=== PATIENT | male | born 1985 | race Caucasian/White ===

== ENCOUNTER 2020-11-10 15:29 | Emergency (ER) | payer MEDICAID, SELFPAY ==
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
[2020-11-10 16:08] VITALS: BP 152/87; PULSE 95; RESP 18; TEMP 37.2; O2SAT 98; BMI 21.4
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
[2020-11-10 18:10] VITALS: BP 134/93; PULSE 105; RESP 17
--- NOTE | 2020-11-10 18:31 | PC.NURSE ---
WAITING FOR PATTERN MAKER PROGRAMER.
== END 2020-11-10 18:48 | disposition home or self-care (01) ==
PROVIDERS: Emergency Provider Emergency Medicine Emergency Medical Services
DX: S49.92XA Unspecified injury of left shoulder and upper arm, initial encounter (principal); M25.512 Pain in left shoulder; R07.81 Pleurodynia; M25.532 Pain in left wrist; M54.2 Cervicalgia; M25.552 Pain in left hip; X58.XXXA Exposure to other specified factors, initial encounter; Y93.9 Activity, unspecified; Y92.9 Unspecified place or not applicable; Y99.9 Unspecified external cause status
CPT/HCPCS: 71101; 72040; 73030; 73110; 73502; 99284

== ENCOUNTER 2021-06-03 00:40 | Emergency (ER) | payer MEDICAID, SELFPAY ==
[2021-06-03 00:51] VITALS: BP 118/99; PULSE 82; RESP 16; TEMP 36.5; O2SAT 100; BMI 20.9
[2021-06-03 01:42] LABS: Ethanol < 10 mg/dL
[2021-06-03 01:48] LABS: COVID-19 Test Negative (Negative); IDNOW Serial# 9DD0AD1C
[2021-06-03 02:08] LABS: Amphetamine Screen Urine POSITIVE (Not Detect); Barbiturates, Urine Not Detected (Not Detect); Benzodiazepines Screen Urine Not Detected (Not Detect); Cannabinoid Screen Urine POSITIVE (Not Detect); Cocaine Screen Urine POSITIVE (Not Detect); Fentanyl, urine POSITIVE (Not Detect); Opiate Screen Urine POSITIVE (Not Detect); Phencyclidine Screen Urine Not Detected (Not Detect)
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
--- NOTE | 2021-06-03 03:56 | PC.NURSE ---
On provider's request care team checked in with patient briefly and recommended to reassess in the morning by care team when patient is less under influence. Patient notified of the plan but seems not happy with the plan and stated he will daxa the hospital for keeping him against his wish. No distress reported at this time, will continue to monitor.
[2021-06-03 06:12] VITALS: BP 122/70; PULSE 78; RESP 16; TEMP 36.6; O2SAT 94
--- NOTE | 2021-06-03 06:21 | PC.NURSE ---
Patient has been sleeping since 344, no distress observed/reported, patient will be reassessed in the morning by care team, patient is not a crises patient, will continue to monitor.
--- NOTE | 2021-06-03 06:48 | ED.GENADULT ---
HPI - General Adult General Chief complaint: Psychiatric Symptoms Stated complaint: crisis drug use Time Seen by Provider: 06/03/21 00:42 Source: patient Mode of arrival: EMS History of Present Illness HPI narrative: 35-year-old male who is brought in by EMS after family called the police department alleging that the patient had made homicidall statements towards them as well as suicidal statements. The please department Section the patient, and as per EMS patient has been calm and quiet. Patient denies SI/HI/AVH and endorses that he has taken multiple substances. Related Data Allergies Allergy/AdvReac Type Severity Reaction Status Date / Time No Known Allergies Allergy Verified 11/10/20 16:08 [No Known Allergies*] Review of Systems Review of Systems: Pertinent positives and negatives as stated in HPI 10 point review of systems is otherwise negative. PMFSH Past Medical History Source: nursing notes reviewed Social History Social History Advance Directives: No Advance Directives Information Provided: Yes Physical Exam Vital Signs: Vital Signs: Last Vital Signs Temp 97.9 F 06/03/21 06:12 Pulse 78 06/03/21 06:12 Resp 16 06/03/21 06:12 BP 122/70 06/03/21 06:12 Pulse Ox 94 06/03/21 06:12 Body Mass Index 20.9 VITAL SIGNS: Reviewed. GENERAL: Well developed, well nourished, in no acute distress. HEAD: Normocephalic/atraumatic EYES: PERRLA, EOMI LUNGS: Normal breath sounds. SpO2<94> CARDIOVASCULAR: Regular rate and rhythm without noted murmurs ABDOMEN: Soft, non-tender, non-distended with bowel sounds. NEUROLOGIC: Alert and oriented x 4. PSYCH: Normal affect Course Course Course Narrative: 35-year-old male with history and clinical presentation consistent with polysubstance abuse and doubt intent on suicidal or homicidal statements as it appears to be situational. VELASQUEZ is significant for polysubstance presents and on initial screening by the care team they recommend re-evaluation in the morning. Patient is otherwise noted to be calm and compliant and understands that he will be re-evaluated. Medical Decision Making Lab Data Labs: Lab Results 06/03/21 06/03/21 06/03/21 Range/Units 01:10 01:10 01:10 Urine Opiates Screen POSITIVE H (Not Detect) Urine Fentanyl Screen POSITIVE H (Not Detect) Ur Barbiturates Screen Not Detected (Not Detect) Ur Phencyclidine Scrn Not Detected (Not Detect) Ur Amphetamines Screen POSITIVE H (Not Detect) U Benzodiazepines Scrn Not Detected (Not Detect) Urine Cocaine Screen POSITIVE H (Not Detect) U Marijuana (THC) Screen POSITIVE H (Not Detect) Ethyl Alcohol < 10 mg/dL COVID-19 ([facility]) Negative (Negative) COVID-19 Clin Com See Note Discharge Plan Discharge Clinical Impression: Polysubstance abuse Patient Disposition: Home, Self-Care Instructions: Polysubstance Abuse (ED) Additional Instructions: Return to the ER for acute worsening of symptoms. Referrals: Physician,Unknown [Primary Care Provider] - 2 days
--- NOTE | 2021-06-03 07:22 | PC.NURSE ---
PT SLEEPING. AWAITING RE-EVAL FROM CARE TEAM PRIOR TO DISCH
--- NOTE | 2021-06-03 09:07 | PC.NURSE ---
CARE TEAM IN SPEAKING WITH PT
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
--- NOTE | 2021-06-03 10:57 | PC.NURSE ---
CARE TEAM SPOKE WITH MOTHER. MOTHER AT COURT HOUSE NOW TRYING TO GET A SECTION 35
--- NOTE | 2021-06-03 13:40 | PC.NURSE ---
PT OUT TO NURSE'S STATION. DEMANDING TO LEAVE. CARE TEAM AWARE. STATES HE HAS TO GO TO WORK.
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
--- NOTE | 2021-06-03 14:14 | MHC.CARE ---
Call to [employer], they want to fruit picker patient on the warrant for court before 2:30, will come here to get him soon. Updated RN, PA and security about?plan.
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
== END 2021-06-03 15:19 | disposition home or self-care (01) ==
PROVIDERS: Emergency Provider Student in an Organized Health Care Education/Training Program
DX: F19.10 Other psychoactive substance abuse, uncomplicated (principal); Z20.822 Contact with and (suspected) exposure to COVID-19
CPT/HCPCS: 36415; 80307; 82077; 87635; 99283

== ENCOUNTER 2022-07-26 23:40 | Emergency (ER) | payer MEDICAID, SELFPAY ==
[2022-07-26 23:50] VITALS: BP 147/98; PULSE 87; RESP 16; TEMP 36.3; O2SAT 100; BMI 24.5
--- NOTE | 2022-07-27 00:18 | PC.NURSE ---
Patient refused labs at this time RN was notified.
--- NOTE | 2022-07-27 00:33 | PC.NURSE ---
Patient arrived via ambulance on section 12 ,after family reported he been talking about killing himself, doing drugs and drinking alcohol at home in the [facility]. He now refusing any labs to be done at this time. [facility] referral was placed and waiting for ETA. Will continue to monitor.
[2022-07-27 00:37] LABS: COVID-19 Test Negative (Negative)
--- NOTE | 2022-07-27 00:53 | ED.PSYCH ---
HPI - Psych General Chief Complaint: Psychiatric Symptoms Stated Complaint: etoh section 12 Time Seen by Provider: 07/26/22 23:49 Source: family and EMS Mode of arrival: EMS Limitations: other (Unwilling to talk) History of Present Illness HPI Narrative: Patient comes to the emergency room via EMS. Seems that at home, the patient was using drugs and drinking alcohol, talking about killing himself. The patient's family called 911. Patient arrived via ambulance, unwilling to talk. Related Data Allergies Allergy/AdvReac Type Severity Reaction Status Date / Time No Known Allergies Allergy Verified 11/10/20 16:08 [No Known Allergies*] Review of Systems Review of Systems: Yes Other (Unwilling to talk) [facility] Past Medical History Medical History Polysubstance abuse Social History Social History Advance Directives: No Advance Directives Information Provided: No Physical Exam Vital Signs: Vital Signs: Last Vital Signs Temp 97.4 F 07/26/22 23:50 Pulse 87 07/26/22 23:50 Resp 16 07/26/22 23:50 BP 147/98 H 07/26/22 23:50 Pulse Ox 100 07/26/22 23:50 O2 Del Method 07/26/22 23:50 BMI result Body Mass Index 24.5 Const: Other: Appearance: Alert. Playing possum Eyes: Pupils equal, round and reactive to light. ENT: Pharynx normal. Neck: Normal inspection. Neck supple. No lymph nodes noted. No crepitus CVS: Normal heart rate and rhythm. Pulses normal. Normal S1 and S2 Respiratory: No respiratory distress. Breath sounds normal. No Wheezing. No rales Abdomen: Soft and nontender. No rigidity. No distention. Skin: Skin warm and dry. Normal skin color. Normal skin turgor. Extremities: No lower extremity edema. No Lacerations. No Rash Neuro: Unwilling to participating cranial nerve assessment Psych: calm, playing possum Course Course Course Narrative: Patient is laying in his bed, unwilling to talk. I told the patient that if he would answer a few questions, including if anything is hurting and if he can open his eyes I would leave him alone. Patient open his eyes and said he is okay and went back to lay down on his belly and close his eyes. I was informed by the patient's nurse that he is unwilling to have blood work or give a urine sample. Behavioral health network consult pending. Physician of survey frausto started at 00:50 MDM - Psych Lab Data Labs: Lab Results 07/27/22 Range/Units 00:07 COVID-19 ([facility]) Negative (Negative) COVID-19 Clin Com See Note Discharge Plan Discharge Clinical Impression: Suicidal ideation, Polysubstance abuse Patient Disposition: Still a Patient
--- NOTE | 2022-07-27 00:59 | PC.NURSE ---
Patient refusing labs, provider is aware, N is aware of this situation too, will follow up in the am.
--- NOTE | 2022-07-27 03:00 | PC.NURSE ---
Patient in his room pacing, refusing any medication at this time. Dr. Rogel was made aware of this. Will continue to monitor.
--- NOTE | 2022-07-27 04:26 | PC.NURSE ---
Patient continue pacing his room, talking to self, holding his chest, reporting chest pain, but decline, V/S. Provider was made aware.
--- NOTE | 2022-07-27 06:05 | PC.NURSE ---
Patient in his room sitting in the floor, talking to self, no distress noted, continue to refused care. labs or help. Will continue to monitor.
--- NOTE | 2022-07-27 08:20 | PC.NURSE ---
pt up at change of shift, now sleeping in no distress. Awaiting N evaluation this morning.
== END 2022-07-27 15:51 | disposition home or self-care (01) ==
PROVIDERS: Emergency Provider Emergency Medicine
DX: F33.1 Major depressive disorder, recurrent, moderate (principal); R45.851 Suicidal ideations; F10.20 Alcohol dependence, uncomplicated; Z20.822 Contact with and (suspected) exposure to COVID-19; Z79.899 Other long term (current) drug therapy; Y90.9 Presence of alcohol in blood, level not specified
CPT/HCPCS: 87635; 99283

== ENCOUNTER 2022-07-29 09:17 | Inpatient (IN) | payer OTHER, MEDICAID, SELFPAY ==
[2022-07-29 09:24] VITALS: BMI 20.3
--- NOTE | 2022-07-29 09:42 | ED_ITS ---
HPI - General Adult General Chief complaint: Psychiatric Symptoms Stated complaint: SI,SECTION 12 Time Seen by Provider: 07/29/22 09:35 Source: patient and EMS Mode of arrival: EMS Limitations: other (patient is not being very cooperative) History of Present Illness HPI narrative: Patient is a 37 year old assigned male presenting to the emergency department today after being found naked in his closet, staring at the wall. EMS states that the patient's mother called after finding the patient naked, staring at the wall, in his closet. Patient's mother told EMS that the patient had vague suicidal statements. Patient is refusing to answer any questions today and was initially acting somewhat aggressive towards staff. Relieving factors: none Exacerbating factors: none Associated symptoms: denies other symptoms Treatments prior to arrival: none Related Data Allergies Allergy/AdvReac Type Severity Reaction Status Date / Time No Known Allergies Allergy Verified 11/10/20 16:08 [No Known Allergies*] Review of Systems Review of Systems: Yes Other (patient refused to answer proper ROS) Constitutional: Constitutional: Reports no additional constitutional complaints, Denies chills, Denies fever(s) and Denies night sweats Eyes: Eyes: Denies eye discharge and Denies loss of vision ENT: Denies dizziness and Denies hoarseness Cardiovascular: Cardiovascular: Denies edema and Denies dyspnea Respiratory: Respiratory: Denies dyspnea Gastrointestinal: Gastrointestinal: Denies vomiting Genitourinary: Genitourinary: Reports no additional male genitourinary complaints, Denies hematuria, Denies oliguria, Denies difficulty urinating, Denies dysuria, Denies urinary frequency, Denies urinary hesitancy, Denies urinary incontinence and Denies urinary urgency Musculoskeletal: Musculoskeletal: Reports no additional musculoskeletal complaints, Denies numbness and Denies tingling Neurologic: Denies dizziness, Denies loss of vision, Denies numbness and Denies tingling Psychiatric: Psychiatric: Reports no additional psychiatric complaints Endocrine: Endocrine: Reports no additional endocrine complaints Hematologic/Lymphatic: Hematologic/Lymphatic: Reports no additional hematologic/lymphatic complaints Allergic/Immunologic: Allergic/Immunologic: Reports no additional allergic/immunologic complaints [facility] Past Medical History Attestation statement: The following information was validated with the patient. Source: old records reviewed and obtained from family (patient's mother) Medical History Polysubstance abuse Social History Social History Advance Directives: No Advance Directives Information Provided: Yes Physical Exam ED Vital Signs: Vital Signs - 24 hr 07/29/22 14:51 07/29/22 23:06 Temperature 97.9 F 97.4 F Pulse Rate 78 76 Respiratory Rate 15 16 Blood Pressure 127/95 H 119/78 Pulse Oximetry 100 99 Oxygen Delivery Method Room Air Room Air BMI result Body Mass Index 20.3 Const General: cooperative, no acute distress, alert and awake Nutritional Appearance: well nourished Orientation/consciousness: patient oriented x3 Limitations: no limitations HENMT Head: Yes normal to inspection and Yes atraumatic Ears: hearing grossly normal bilaterally and external ears normal General nose exam: Normal external nose present, no nasal discharge noted and no epistaxis Face and sinus: Yes normal facial exam, No abrasion and No laceration Mouth: Normal oral and palatal mucosa present, no drooling and no muffled voice Eyes General: appearance normal, both eyes and all related structures Periorbital: periorbital findings normal Eyelids: Yes eyelids normal Conjunctivae: conjunctivae normal Pupils: Equal, round and reactive pupils present EOM: EOMs intact bilaterally Neck Neck: Yes normal visual inspection, Yes full ROM and Yes no lymphadenopathy Chest Chest palpation & inspection: normal inspection of the chest Resp Effort & Inspection: normal respiratory effort and able to speak in complete sentences GI Inspection: Yes normal to inspection Neuro General: patient oriented x3 and moves all extremities Cranial nerves: Yes Equal, round and reactive pupils present Cognition (Neuro): normal cognition Motor exam (neuro): 5/5 motor strength present throughout Sensory Exam: Normal double simultaneous stimulation for sensation Coordination: [id number] test normal Extrem General: Yes normal to inspection, Yes full ROM and Yes capillary refill normal Psych Appearance: grossly normal Mental Status: mental status grossly normal Affect: normal affect Attitude: cooperative Thought process: Normal thought process present Thought content: Normal thought content present Insight: Good insight present (Psych) Medical Decision Making MDM Narrative Medical decision making narrative: Patient is a 37 year old assigned male presenting to the emergency department today after making vague suicidal statements and acting bizarre. Patient's physical exam was unremarkable. Patient's blood work was unremarkable. Patient's urine showed no acute process. I explained my physical exam findings as well as all test results to the patient. I answered all questions asked by the patient. Patient is pending evaluation by the [facility] team. Medical Records Medical records reviewed: Yes I reviewed the patient's medical records. Lab Data Lab results reviewed: Yes I reviewed the patient's lab results. Result diagrams: 07/29/22 13:11 07/29/22 13:11 Labs: Lab Results 07/29/22 07/29/22 07/29/22 Range/Units 13:11 13:11 13:36 WBC 10.8 (4.8-10.8) X10*3/uL RBC 5.16 (4.60-5.80) X10*6/uL Hgb 15.1 (14.0-18.0) g/dl Hct 45.7 (42.0-52.0) % MCV 88.6 (80.0-98.0) fL MCH 29.3 (27.0-33.0) pg MCHC 33.0 (31.0-36.0) g/dl RDW 12.5 (11.0-16.0) % Plt Count 249 (160-400) X10*3/uL MPV 9.4 (9.4-12.4) fL Immature Gran % (Auto) 0.4 (0.0-0.4) % Neut % (Auto) 82.4 H (45-73) % Lymph % (Auto) 12.0 L (20-40) % [place] % (Auto) 4.9 (2-11) % Eos % (Auto) 0.0 (0-4) % Baso % (Auto) 0.3 (0-2) % Lymph # (Auto) 1.3 (1.2-4.9) X10*3/uL [place] # (Auto) 0.5 (0.1-1.2) X10*3/uL Eos # (Auto) 0.0 (0.0-0.4) X10*3/uL Baso # (Auto) 0.0 (0.0-0.2) X10*3/uL Abs Immat Gran (auto) 0.04 H (0.00-0.03) X10*3/uL Absolute Neuts (auto) 8.9 H (2.0-8.3) x10*3/uL Absolute Nucleated RBC 0.000 (0.0-0.012) X10*3/uL Nucleated RBC % (auto) 0.0 (0.0-0.2) /100WBC Sodium 141 (135-145) mmol/L Potassium 4.6 (3.3-5.1) mmol/L Chloride 103 (96-108) mmol/L Carbon Dioxide 28 (22-29) mmol/L Anion Gap 15 (12-20) BUN 15 (9-16) mg/dL Creatinine 1.01 (0.5-1.4) mg/dL Estim Creat Clear Calc 98.2 Estimated GFR > 60 Random Glucose 102 (60-115) mg/dL Calcium 9.7 (8.4-10.2) mg/dL Total Bilirubin 0.5 (0.0-1.0) mg/dL AST 24 (5-37) U/L ALT 20 (0-40) U/L Alkaline Phosphatase 84 (39-117) U/L Total Protein 7.8 (6.5-8.0) g/dL Albumin 4.8 (3.5-5.0) g/dL Salicylates < 5.0 L (15-30) mg/dL Urine Opiates Screen (Not Detect) Urine Fentanyl Screen (Not Detect) Acetaminophen < 1 (<30) mcg/mL Ur Barbiturates Screen (Not Detect) Ur Phencyclidine Scrn (Not Detect) Ur Amphetamines Screen (Not Detect) U Benzodiazepines Scrn (Not Detect) Urine Cocaine Screen (Not Detect) U Marijuana (THC) Screen (Not Detect) Ethyl Alcohol < 10 mg/dL COVID-19 ([facility]) Negative (Negative) COVID-19 Clin Com See Note 07/29/22 Range/Units 20:37 WBC (4.8-10.8) X10*3/uL RBC (4.60-5.80) X10*6/uL Hgb (14.0-18.0) g/dl Hct (42.0-52.0) % MCV (80.0-98.0) fL MCH (27.0-33.0) pg MCHC (31.0-36.0) g/dl RDW (11.0-16.0) % Plt Count (160-400) X10*3/uL MPV (9.4-12.4) fL Immature Gran % (Auto) (0.0-0.4) % Neut % (Auto) (45-73) % Lymph % (Auto) (20-40) % [place] % (Auto) (2-11) % Eos % (Auto) (0-4) % Baso % (Auto) (0-2) % Lymph # (Auto) (1.2-4.9) X10*3/uL [place] # (Auto) (0.1-1.2) X10*3/uL Eos # (Auto) (0.0-0.4) X10*3/uL Baso # (Auto) (0.0-0.2) X10*3/uL Abs Immat Gran (auto) (0.00-0.03) X10*3/uL Absolute Neuts (auto) (2.0-8.3) x10*3/uL Absolute Nucleated RBC (0.0-0.012) X10*3/uL Nucleated RBC % (auto) (0.0-0.2) /100WBC Sodium (135-145) mmol/L Potassium (3.3-5.1) mmol/L Chloride (96-108) mmol/L Carbon Dioxide (22-29) mmol/L Anion Gap (12-20) BUN (9-16) mg/dL Creatinine (0.5-1.4) mg/dL Estim Creat Clear Calc Estimated GFR Random Glucose (60-115) mg/dL Calcium (8.4-10.2) mg/dL Total Bilirubin (0.0-1.0) mg/dL AST (5-37) U/L ALT (0-40) U/L Alkaline Phosphatase (39-117) U/L Total Protein (6.5-8.0) g/dL Albumin (3.5-5.0) g/dL Salicylates (15-30) mg/dL Urine Opiates Screen Not Detected (Not Detect) Urine Fentanyl Screen Not Detected (Not Detect) Acetaminophen (<30) mcg/mL Ur Barbiturates Screen Not Detected (Not Detect) Ur Phencyclidine Scrn Not Detected (Not Detect) Ur Amphetamines Screen Not Detected (Not Detect) U Benzodiazepines Scrn Not Detected (Not Detect) Urine Cocaine Screen POSITIVE H (Not Detect) U Marijuana (THC) Screen POSITIVE H (Not Detect) Ethyl Alcohol mg/dL COVID-19 ([facility]) (Negative) COVID-19 Clin Com Discharge Plan Discharge Clinical Impression: Suicidal ideation Patient Disposition: Still a Patient Print Language: Bahamian
--- NOTE | 2022-07-29 10:18 | PC.NURSE ---
Pt refusing lab draws at this time, stating he needs to sleep . Will reattempt in a little while.
--- NOTE | 2022-07-29 12:30 | MHC.CARE ---
Smart sheet submitted
[2022-07-29 13:16] LABS: MANUAL DIFF FLAG NO
[2022-07-29 13:18] LABS: Basophils Percent Auto 0.3 % (0-2); Hematocrit 45.7 % (42.0-52.0); Hemoglobin 15.1 g/dl (14.0-18.0); Imm Gran Abs Auto 0.04 X10*3/uL (0.00-0.03); Imm Gran Pct Auto 0.4 % (0.0-0.4); Lymphocytes Absolute Auto 1.3 X10*3/uL (1.2-4.9); Mean Corpuscular Hemoglobin 29.3 pg (27.0-33.0); Mean Corpuscular Volume 88.6 fL (80.0-98.0); Mean Platelet Volume 9.4 fL (9.4-12.4); Monocytes Absolute Auto 0.5 X10*3/uL (0.1-1.2); Monocytes Percent Auto 4.9 % (2-11); Neutrophils Absolute Auto 8.9 x10*3/uL (2.0-8.3); Neutrophils Percent Auto 82.4 % (45-73); Platelet Count 249 X10*3/uL (160-400); Red Blood Count 5.16 X10*6/uL (4.60-5.80); Red Cell Distribution Width 12.5 % (11.0-16.0); White Blood Count 10.8 X10*3/uL (4.8-10.8)
[2022-07-29 13:52] LABS: Acetaminophen LAB < 1 mcg/mL (<30); Alanine Aminotransferase 20 U/L (0-40); Albumin Level 4.8 g/dL (3.5-5.0); Alkaline Phosphatase 84 U/L (39-117); Anion Gap 15 (12-20); Aspartate Amino Transferase 24 U/L (5-37); Bilirubin Total 0.5 mg/dL (0.0-1.0); Blood Urea Nitrogen 15 mg/dL (9-16); Calcium 9.7 mg/dL (8.4-10.2); Carbon Dioxide 28 mmol/L (22-29); Chloride 103 mmol/L (96-108); Creatinine Clr Calc Pharmacy 98.2; Estimated Glomerular Filt Rate > 60; Ethanol < 10 mg/dL; Glucose Random 102 mg/dL (60-115); Potassium 4.6 mmol/L (3.3-5.1); Salicylate < 5.0 mg/dL (15-30); Sodium 141 mmol/L (135-145); Total Protein 7.8 g/dL (6.5-8.0)
[2022-07-29 14:02] LABS: COVID-19 Test Negative (Negative); IDNOW Serial# 16C4AD1C
[2022-07-29 14:51] VITALS: BP 127/95; PULSE 78; RESP 15; TEMP 36.6; O2SAT 100
[2022-07-29] MEDS: Ibuprofen 800 MG TABLET PO (20:42)
[2022-07-29 20:59] LABS: Amphetamine Screen Urine Not Detected (Not Detect); Barbiturates, Urine Not Detected (Not Detect); Benzodiazepines Screen Urine Not Detected (Not Detect); Cannabinoid Screen Urine POSITIVE (Not Detect); Cocaine Screen Urine POSITIVE (Not Detect); Fentanyl, urine Not Detected (Not Detect); Opiate Screen Urine Not Detected (Not Detect); Phencyclidine Screen Urine Not Detected (Not Detect)
[2022-07-29] MEDS: diphenhydrAMINE HCL 25 MG CAPSULE 50 MG PO (21:08)
[2022-07-29 23:06] VITALS: BP 119/78; PULSE 76; RESP 16; TEMP 36.3; O2SAT 99
[2022-07-29] MEDS: Acetaminophen 325 MG TABLET 975 MG PO (23:13)
[2022-07-29] MEDS: LORazepam 1 MG TABLET PO (23:13)
--- NOTE | 2022-07-30 | ECG_ITS ---
Test Reason : med clearance Blood Pressure : / mmHG Vent. Rate : 080 BPM Atrial Rate : 080 BPM P-R Int : 146 ms QRS Dur : 088 ms QT Int : 368 ms P-R-T Axes : 064 067 078 degrees QTc Int : 424 ms Normal sinus rhythm RSR' or QR pattern in V1 suggests right ventricular conduction delay Otherwise normal ECG No previous ECGs available Referred By: Norah Carven Electronically Signed By:MITZI CLAUDIO MD
--- NOTE | 2022-07-30 01:58 | PC.NURSE ---
Patient sleeping comfortably in his bed, no distress noted.Will continue to monitor.
--- NOTE | 2022-07-30 06:15 | PC.NURSE ---
Patient sleeping comfortably, no distress noted. Will continue to monitor.
--- NOTE | 2022-07-30 08:18 | PC.NURSE ---
Pharmacy called about med rec
[2022-07-30 09:30] VITALS: BP 120/73; PULSE 81; RESP 16; TEMP 36.7; O2SAT 100
[2022-07-30] MEDS: diphenhydrAMINE HCL 25 MG TABLET 50 MG PO (10:23)
[2022-07-30] MEDS: Acetaminophen 325 MG TABLET 650 MG PO (10:24)
--- NOTE | 2022-07-30 10:31 | PC.NURSE ---
Patient c/o right leg pain and requested tylenol and benadryl. Dr. Box notified
--- NOTE | 2022-07-30 10:34 | MHC.CARE ---
Call from patient's uncle Choco Whipple [phone], lives in [place] and has been trying to help his sister with the situation with nephew. They are concerned about patient being discharged due to his drug use and unusual behavior and has threatened to kill both of them recently and more concerning told his uncle, I hear the voice to kill my mom but I'm scared of it because that is my mother. Patient's father lives in [facility], has schizophrenia, that why patient's mother left and moved to [place]. Advised patient will be here through the weekend receiving mental health treatment and the team will be in contact with family regarding discharge planning.
--- NOTE | 2022-07-30 11:10 | PHA.MEDREC ---
Pharmacy Consult ? Medication Reconciliation Pharmacy has completed the medication reconciliation.
--- NOTE | 2022-07-30 12:56 | P.CNPS_ITS ---
History of Present Illness Date of Service: 07/30/2022 Chief Complaint: Psychosis Reason for Consult: paranoid/psychosis Discussed with referring provider: Yes Sources of Information: patient interviewed, chart reviewed and crisis/core team assessment reviewed HPI Narrative: Mr. Vegas was brought via EMS to [facility] after mother called police after she found pt naked in his closet, staring at the wall. EMS states that the patient's mother called after finding the patient naked, staring at the wall, in his closet. Patient's mother told EMS that the patient had vague suicidal s tatements. Pt's uncle called stating that pt had reporting voices telling him to kill his mother. In the Ed his utox is positive for cocaine, cannabis. Pt has hx of polysubstance use but this is first episode of psychosis and paranoia. Pt has been presenting as increasingly agitated. Pt reports he is 66% robot, and substances do not affect him as much as they would affect others. Pt appears suspicious, scanning room, checking multiple times staff's badges, asking their names and whether we can provide him with out phone numbers. Pt denies SI/HI. He does report voices were telling him to kill his mother. Pt asking to leave but still appears disorganized, internally preoccupied. Medical Evaluation Reviewed: Yes [facility] Medical History (Updated 08/02/22 @ 08:18 by Gertrude Hoskins) Alcohol use disorder, moderate, dependence Cannabis use disorder Opioid use disorder Polysubstance abuse Diagnostics Vital Signs (24Hr): Vital Signs - 24 hr 07/29/22 14:51 07/29/22 23:06 07/30/22 09:30 Temperature 97.9 F 97.4 F 98.1 F Pulse Rate 78 76 81 Respiratory Rate 15 16 16 Blood Pressure 127/95 H 119/78 120/73 Pulse Oximetry 100 99 100 Oxygen Delivery Method Room Air Room Air Room Air BMI result Body Mass Index 20.3 Labs Results: 07/29/22 13:11 07/29/22 13:11 Labs: Laboratory Results - last 48 hr 07/29/22 07/29/22 07/29/22 13:11 13:11 13:36 WBC 10.8 RBC 5.16 Hgb 15.1 Hct 45.7 MCV 88.6 MCH 29.3 MCHC 33.0 RDW 12.5 Plt Count 249 MPV 9.4 Immature Gran % (Auto) 0.4 Neut % (Auto) 82.4 H Lymph % (Auto) 12.0 L [place] % (Auto) 4.9 Eos % (Auto) 0.0 Baso % (Auto) 0.3 Lymph # (Auto) 1.3 [place] # (Auto) 0.5 Eos # (Auto) 0.0 Baso # (Auto) 0.0 Abs Immat Gran (auto) 0.04 H Absolute Neuts (auto) 8.9 H Absolute Nucleated RBC 0.000 Nucleated RBC % (auto) 0.0 Sodium 141 Potassium 4.6 Chloride 103 Carbon Dioxide 28 Anion Gap 15 BUN 15 Creatinine 1.01 Estim Creat Clear Calc 98.2 Estimated GFR > 60 Random Glucose 102 Calcium 9.7 Total Bilirubin 0.5 AST 24 ALT 20 Alkaline Phosphatase 84 Total Protein 7.8 Albumin 4.8 Salicylates < 5.0 L Urine Opiates Screen Urine Fentanyl Screen Acetaminophen < 1 Ur Barbiturates Screen Ur Phencyclidine Scrn Ur Amphetamines Screen U Benzodiazepines Scrn Urine Cocaine Screen U Marijuana (THC) Screen Ethyl Alcohol < 10 COVID-19 ([facility]) Negative COVID-19 Clin Com See Note 07/29/22 20:37 WBC RBC Hgb Hct MCV MCH MCHC RDW Plt Count MPV Immature Gran % (Auto) Neut % (Auto) Lymph % (Auto) [place] % (Auto) Eos % (Auto) Baso % (Auto) Lymph # (Auto) [place] # (Auto) Eos # (Auto) Baso # (Auto) Abs Immat Gran (auto) Absolute Neuts (auto) Absolute Nucleated RBC Nucleated RBC % (auto) Sodium Potassium Chloride Carbon Dioxide Anion Gap BUN Creatinine Estim Creat Clear Calc Estimated GFR Random Glucose Calcium Total Bilirubin AST ALT Alkaline Phosphatase Total Protein Albumin Salicylates Urine Opiates Screen Not Detected Urine Fentanyl Screen Not Detected Acetaminophen Ur Barbiturates Screen Not Detected Ur Phencyclidine Scrn Not Detected Ur Amphetamines Screen Not Detected U Benzodiazepines Scrn Not Detected Urine Cocaine Screen POSITIVE H U Marijuana (THC) Screen POSITIVE H Ethyl Alcohol COVID-19 ([facility]) COVID-19 Clin Com Mental Status Exam Mental Status Exam Narrative: Appearance: wearing hospital gown, restless, pacing, suspicious Behavior: suspicious, guarded Psychomotor: no agitation or retardation noted Speech: mumbles at times, regular rate/rhythm, spontaneous TP: tangential, at times loose association TC: paranoia toward staff, wanting to leave, no insight into effects of substances Mood: good Affect: guarded, suspicious AH/VH: denies but appears internally preoccupied Delusions: paranoid Insight/judgment: impaired x 2 memory/cog: alert, not oriented to situation, impaired s/s to psychotic symptoms induced by substances. Medications Allergies Allergies Allergy/AdvReac Type Severity Reaction Status Date / Time No Known Allergies Allergy Verified 11/10/20 16:08 [No Known Allergies*] Assessment & Plan Assessment & Plan (1) Substance-induced psychotic disorder with delusions: Status: Acute Code(s): F19.950 - Other psychoactive substance use, unspecified with psychoactive substance-induced psychotic disorder with delusions Plan Mr. Vegas is a 37 year-old male with extensive substance use hx, who presents with new onset of psychosis and delusions, most likely induced by substances. Pt continues to present as paranoid, internally preoccupied affecting his ability to function, insight and judgment. PLAN 1. Need inpt level of care for further stabilization, safety and containment. 2. On sect 12, as pt declined to sign CV. I spent minutes with the patient and/or on the patient floor today, greater than?50% of which was spent counseling/coordinating care.
[2022-07-30] MEDS: LORazepam 1 MG TABLET 2 MG PO (13:25)
[2022-07-30] MEDS: OLANZapine ODT 10 MG TAB.RAPDIS TRANSLINGU ×3 (13:25→20:46)
[2022-07-30] MEDS: Thiamine HCL 100 MG TABLET PO (13:25)
--- NOTE | 2022-07-30 15:22 | PC.NURSE ---
Attempt made to engage pt in individual OT tx this date. Pt presents with flat affect, guarded, suspicious, and anxious during conversation with this policy writer sales. Pt perseveres with regard to to meeting with the doctor and to go home stating that he needs to get back to work to pay for his car. 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 Pt becomes increasing anxious during conversation replying in on one word answers, closing off conversation. Pt is unreceptive to sensory item, coloring pages, and cross word puzzles provided stating this is for children . Refusal of items may partially cultural in nature. Pt returns to his room at conclusion of conversation. Per POD staff pt has been observed staring blankly and apparently responding to internal stimuli.
[2022-07-30 16:27] VITALS: BP 131/73; PULSE 76; RESP 18; TEMP 36.5; O2SAT 98
[2022-07-30] MEDS: Acetaminophen 325 MG TABLET 975 MG PO (19:42)
[2022-07-30] MEDS: hydrOXYzine HCL 25 MG TABLET PO (20:46)
[2022-07-30] MEDS: Ibuprofen 600 MG TABLET PO (20:46)
[2022-07-30] MEDS: Buprenorphine/Naloxone 4/1 mg FILM 1 FILM SUBLINGUAL (20:47)
[2022-07-30 22:00] VITALS: BP 117/73; PULSE 80; RESP 16; TEMP 36.3; O2SAT 100
--- NOTE | 2022-07-31 03:30 | PC.ADMIT ---
Pt is a 37yoM admitted from [facility] pod on a section 12b for making suicidal statements to his mother. Pt reportedly has been acting impulsively at home, not sleeping, locked himself in a closet, and was found unresponsive in the bathroom after appearing to be using drugs. Pt told his mother I want to kill myself and stated he is hearing voices. Pt reported using cocaine, Etoh, and marijuana but downplays amount and frequency. Pt reportedly smokes 5 cigarettes daily, takes [facility]oxone from [facility]. He has a fhx of schizophrenia in his father, hx of arrests/care home time for motor vehicle related violations. Pt is a poor historian and gives conflicting information compared to the evaluation, denies SI/HI/AVH on assessment. Pt calm and cooperative during assessment, though declined to sign any paperwork, and requested vicodin and xanax for pain and anxiety. Appears to have limited insight into situation.
[2022-07-31 09:30] VITALS: BP 143/80; PULSE 113; RESP 18; TEMP 37.1; O2SAT 99
[2022-07-31] MEDS: OLANZapine ODT 10 MG TAB.RAPDIS TRANSLINGU ×2 (09:59→20:30)
[2022-07-31] MEDS: Thiamine HCL 100 MG TABLET PO (09:59)
[2022-07-31] MEDS: Buprenorphine/Naloxone 12/3 mg FILM 1 FILM SUBLINGUAL (09:59)
--- NOTE | 2022-07-31 13:55 | P.HPPS_ITS ---
HPI Date of Service: 07/31/22 Chief Complaint: Psychosis Sources of Information: patient interviewed, chart reviewed and crisis/core team assessment reviewed HPI Subjective Notes: El Warning, Conditional Voluntary and 3 Day Healthcare Proxy: No Guardianship: No Medical Problems Affecting Mental Status: No Narrative: 37 yo male, to ER with intoxication SI. Section XIIB. He was found in the bathroom on 07/27 unresponsive with narcotics on his person. Pt verbalized SI to family per their report-pt denies. He reports he received a call and the person who called him threatened his life. He told his mother this and he reports she told police he was suicidal. Per team, pt cannot return home. Pt refuses contact with his family. Family reports several arrests for motor vehicle violations with incarcerations in [place] and [place]. He has a motorcycle license that is suspended. Per family odd behaviors which place him at risk including poor sleep, property damage to a light in the home. On 07/26 pt locked himself in a bathroom for several minutes appearing to be unresponsive. Family has decided he may not return home. Past Psychiatric History: IP:Denies OP: Denies Med Trials: Denies Medical Evaluation Reviewed: Yes [facility] Medical History (Updated 07/31/22 @ 16:24 by Veronica Beltran, JITENDRA) Alcohol use disorder, moderate, dependence Cannabis use disorder Opioid use disorder Polysubstance abuse Family History: Schizophrenia-paternal family Social History: Born in [facility]- to [facility] ~25 years ago (age 14). One brother, one sister. 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 [employer] No relationship, no children Recreation-alcohol and watching ladies on TV Substance History: Cannabis-daily Crack Heroin Alcohol-daily 2 beers if driving, 5 if not Suboxone from right choice Trauma History: Denies Diagnostics Vital Signs (24Hr): Vital Signs - 24 hr 07/30/22 16:27 07/30/22 22:00 07/31/22 09:30 Temperature 97.7 F 97.4 F 98.8 F Pulse Rate 76 80 113 H Respiratory Rate 18 16 18 Blood Pressure 131/73 117/73 143/80 H Pulse Oximetry 98 100 99 Oxygen Delivery Method Room Air Room Air Room Air BMI result Body Mass Index 20.3 Labs Results: 07/29/22 13:11 07/29/22 13:11 Labs: Laboratory Results - last 48 hr 07/29/22 07/29/22 13:36 20:37 Urine Opiates Screen Not Detected Urine Fentanyl Screen Not Detected Ur Barbiturates Screen Not Detected Ur Phencyclidine Scrn Not Detected Ur Amphetamines Screen Not Detected U Benzodiazepines Scrn Not Detected Urine Cocaine Screen POSITIVE H U Marijuana (THC) Screen POSITIVE H COVID-19 ([facility]) Negative COVID-19 Clin Com See Note Meds/Allergies Meds Home Medications Medication Instructions Recorded Confirmed Type buprenorphine 12 mg-naloxone 3 mg 1 strip sublingual DAILY 07/30/22 07/30/22 History sublingual film (Suboxone) Allergies Allergies Allergy/AdvReac Type Severity Reaction Status Date / Time No Known Allergies Allergy Verified 11/10/20 16:08 [No Known Allergies*] Mental Status Exam Mental Status Exam Patient Appearance: Fatigued Patient Orientation: Person, Place and Situation Level of Consciousness: Alert Patient Behavior: Talkative, Cooperative, Suspicious, Restless, Fearful, Fatigued, Distractible, Good Eye Contact and Crying (later in the day) Mood Description: Constricted, Depressed and Sad Affect Description: Constricted and Flat Patient Cognition Impaired: No Ability to Follow Directions: Good Speech Pattern: Spontaneous Speech Memory Description: Episodic Impaired Hallucinations: Auditory Delusions: Paranoid Ideation and Present Perceptual Disturbances: Derealization Thought Process: Distracted and Rumination Thought Content: positive for Circumstantial, positive for Preoccupation, positive for Suicidal Ideation (denies) and positive for Homicidal Ideation (denies) Abnormal Motor Activity Signs and Symptoms: Restlessness Judgement: Poor Assessment & Plan Assessment & Plan (1) Alcohol use disorder, moderate, dependence: Status: Acute Code(s): F10.20 - Alcohol dependence, uncomplicated (2) Opioid use disorder: Status: Acute Code(s): F11.90 - Opioid use, unspecified, uncomplicated (3) Cannabis use disorder: Status: Acute Code(s): F12.90 - Cannabis use, unspecified, uncomplicated (4) Major depression with psychotic features: Status: Acute Code(s): F32.3 - Major depressive disorder, single episode, severe with psychotic features (5) Cocaine use disorder: Status: Acute Code(s): F14.10 - Cocaine abuse, uncomplicated Plan 37 yo male, to ER expressing SI, HI and bizarre behaviors reported over the past several days. Pt is more labile, depressed as the day progresses. Declines contact with family. Tells this technical document writer that someone threatened his life CASTING ROOM HELPER and mother told police he was suicidal. They told me I was not needed any longer and I was not part of God. TW filed a three day notice on his behalf. Plan: Continue Olanzapine Depakote ER 500 mg HS Section 12B to 08/04/22. Refused follow up labs. Patient educated on: medication risk/benefits and therapeutic strategies Informed Consent: does not understand Reason for continued inpatient stay Substantial Risk for: harm to self, harm to others, inability to function and rapid decompensation
[2022-07-31 17:15] VITALS: BP 133/93; PULSE 106; TEMP 37; O2SAT 98
[2022-07-31] MEDS: diphenhydrAMINE HCL 25 MG CAPSULE 50 MG PO (17:31)
--- NOTE | 2022-07-31 19:14 | PC.NURSE ---
At start of shift, this commercial loan underwriter (TW) was informed that pt's uncle Choco wanted to speak to pt's nurse. TW was informed that pt had signed a release for staff to speak with the uncle. TW spoke with Uncle Choco ([phone]) who was located in [place]. Choco had been in close contact with pt's mother, Zofia and was worried pt would be discharged too soon. Choco expressed he was worried that pt had revealed to his sister Zofia that pt had had a voice that commanded pt to their mother, pt's grandmother. Choco said Zofia had never revealed this to police because she didn't want pt to get into trouble, but was now worried about pt's and the families' safety. Choco also revealed he had received a text threatening from the pt in the past. When pt was asked about this later pt said it's a mistake . Choco said he used to employ pt and was able to provide economic stability and monitor for drug use, but pt returned to [place] to escape this control. Choco said the family set pt up in the [employer] business and pt's mother owns the truck that the pt believes was towed and is in impound. Choco said that the family retrieved the vehicle, but does not want pt to know this. Choco said he fears that pt will discharge too early and will return to drug use. Choco said pt uses cocaine, heroin, suboxone and Etoh. Choco said drug use began about 15 years ago. Choco also said that pt has been irresponsible with the [employer], taking money from customers and spending the money. Choco said that pt can return to work and his family when he is drug-free. At 1700, TW spoke with pt and pt asked that his authorization that allowed staff to talk to Choco be retracted, which was done so in pt's chart at that time. Pt stated to this commercial loan underwriter that he would not take haldol or zyprexa, but was willing to take ordered Benadryl 50mg Q6H for agitation. Pt asked that Benadryl be increased to 75mg. Pt accepted medication education and said would utilize PRN meds to help stay safe if needed. Additionally pt asked for a CT of his head and right leg because of a fall on a job site about 1 month ago. Pt denied current pain.
[2022-07-31] MEDS: traZODone HCL 50 MG TABLET PO ×2 (20:29→23:51)
[2022-07-31] MEDS: Divalproex Sodium ER 500 MG TAB.ER.24H PO (20:29)
[2022-07-31] MEDS: hydrOXYzine HCL 25 MG TABLET PO (20:31)
[2022-08-01] MEDS: OLANZapine ODT 10 MG TAB.RAPDIS TRANSLINGU ×2 (09:43→19:57)
[2022-08-01] MEDS: Buprenorphine/Naloxone 12/3 mg FILM 1 FILM SUBLINGUAL (09:43)
[2022-08-01] MEDS: Thiamine HCL 100 MG TABLET PO (09:43)
--- NOTE | 2022-08-01 13:02 | PC.NURSE ---
PT IS REFUSING ANY NICOTINE REPLACEMENT THERAPY
--- NOTE | 2022-08-01 14:42 | HO.PSYCHPN ---
Subjective Subjective Date of Service: 08/01/22 Reason For Visit: Psychosis Subjective Notes: Section 12B Healthcare Proxy: No Guardianship: No Medical Problems Affecting Mental Status: No Interim History: Declines contact with family. Asking for discharge. Refuses to provide information. Call to mother Shayy [phone] and uncle Rajesh [phone]. Rajesh interpreted for Shayy per her request. She speaks Fijian but wanted Rajesh to back her up. Informed both of pt's refusal for contact, however, asked if there were concerns we should be aware of to care properly for pt. Three recent Section 35's filed on pt. Pt is improved since in hospital and on meds-he is calling home and is much clearer. Mother reports symptoms appear when he uses drugs and he becomes a danger to self and others. Started hearing voices after COVID injection-discussed a microchip implant. Family has been attempting to help him find treatment as he has a fifteen year plus history of substance abuse. Active warrant for [address] on 08[address] if his symptoms permit after eval of the weekend. Pt again today is evasive and wants to return home. It is all a misunderstanding. He does not appear to have any interest in treatment at this time, which we discussed as accepting his decision but asking him to reconsider. He is accepting medicine. Medication Compliance: Yes Side effects from medications: No Attending Groups: No Review of Systems Acute medical concerns: No Mental Status Exam Mental Status Exam Patient Appearance: Fatigued Patient Orientation: Person, Place and Situation Level of Consciousness: Alert Patient Behavior: Talkative, Cooperative, Suspicious, Restless, Fearful, Fatigued, Distractible, Good Eye Contact and Crying (later in the day) Mood Description: Constricted, Depressed and Sad Affect Description: Constricted and Flat Patient Cognition Impaired: No Ability to Follow Directions: Good Speech Pattern: Spontaneous Speech Memory Description: Episodic Impaired Hallucinations: Auditory Delusions: Paranoid Ideation and Present Perceptual Disturbances: Derealization Thought Process: Distracted and Rumination Thought Content: positive for Circumstantial, positive for Preoccupation, positive for Suicidal Ideation (denies) and positive for Homicidal Ideation (denies) Abnormal Motor Activity Signs and Symptoms: Restlessness Judgement: Poor Diagnostics Vital Signs (24Hr): Vital Signs - 24 hr 07/31/22 17:15 Temperature 98.6 F Pulse Rate 106 H Blood Pressure 133/93 H Pulse Oximetry 98 Oxygen Delivery Method Room Air BMI result Body Mass Index 20.3 Labs Results: 07/29/22 13:11 07/29/22 13:11 Medications Medications Current Medications Acetaminophen (Acetaminophen 325 Mg Tablet) 650 mg PO Q6H PRN PRN Reason: Headache/Pain Mild Scale (1-3) Al Hydroxide/Mg Hydroxide (Magnesium Hydrox/Alum Hydrox 30 Ml Oral.Susp) 30 ml PO Q6H PRN PRN Reason: Heartburn/Nausea Buprenorphine/Naloxone (Buprenorphine/Naloxone 12/3 Mg Film) 1 film SUBLINGUAL DAILY [facility] Last Admin: 08/01/22 09:43 Dose: 1 film Diphenhydramine HCl (Diphenhydramine Hcl 25 Mg Capsule) 50 mg PO Q6H PRN PRN Reason: agitation Last Admin: 07/31/22 17:31 Dose: 50 mg Divalproex Sodium (Divalproex Sodium Er 500 Mg Tab.Er.24h) 500 mg PO BEDTIME [facility] Last Admin: 07/31/22 20:29 Dose: 500 mg Haloperidol (Haloperidol 5 Mg Tablet) 5 mg PO TID PRN PRN Reason: Psychosis Hydroxyzine HCl (Hydroxyzine Hcl 25 Mg Tablet) 25 mg PO Q6H PRN PRN Reason: Anxiety Last Admin: 07/31/22 20:31 Dose: 25 mg Ibuprofen (Ibuprofen 600 Mg Tablet) 600 mg PO Q6H PRN PRN Reason: pain, moderate Last Admin: 07/30/22 20:46 Dose: 600 mg Magnesium Hydroxide (Milk Of Magnesia 30 Ml Oral.Susp) 30 ml PO DAILY PRN PRN Reason: Constipation Olanzapine (Olanzapine Odt 10 Mg Tab.Rapdis) 10 mg TRANSLINGU BID [facility] Last Admin: 08/01/22 09:43 Dose: 10 mg Olanzapine (Olanzapine Odt 10 Mg Tab.Rapdis) 10 mg TRANSLINGU Q6H PRN PRN Reason: agitation Last Admin: 07/30/22 20:46 Dose: 10 mg Thiamine HCl (Thiamine Hcl 100 Mg Tablet) 100 mg PO DAILY [facility] Last Admin: 08/01/22 09:43 Dose: 100 mg Trazodone HCl (Trazodone Hcl 50 Mg Tablet) 50 mg PO BEDTIME PRN PRN Reason: Insomnia Last Admin: 10/13/22 23:51 Dose: 50 mg Allergies Allergies Allergy/AdvReac Type Severity Reaction Status Date / Time No Known Allergies Allergy Verified 11/10/20 16:08 [No Known Allergies*] Assessment & Plan Assessment & Plan (1) Alcohol use disorder, moderate, dependence: Status: Acute Code(s): F10.20 - Alcohol dependence, uncomplicated (2) Opioid use disorder: Status: Acute Code(s): F11.90 - Opioid use, unspecified, uncomplicated (3) Cannabis use disorder: Status: Acute Code(s): F12.90 - Cannabis use, unspecified, uncomplicated (4) Major depression with psychotic features: Status: Acute Code(s): F32.3 - Major depressive disorder, single episode, severe with psychotic features (5) Cocaine use disorder: Status: Acute Code(s): F14.10 - Cocaine abuse, uncomplicated Plan 37 yo male, to ER expressing SI, HI and bizarre behaviors reported over the past several days. Pt is more labile, depressed as the day progresses. Declines contact with family. 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 They told me I was not needed any longer and I was not part of God. TW filed a three day notice on his behalf. Plan: Continue Olanzapine Depakote ER 500 mg HS Section XIIB expires 08/04/22 Refused follow up labs. 08/01/22- Increase Olanzapine to 20 mg HS I spent minutes with the patient and/or on the patient floor today, greater than?50% of which was spent counseling/coordinating care. Informed Consent: further education needed Reason for contiued inpatient stay Substantial Risk for: rapid decompensation
[2022-08-01 18:00] VITALS: BP 122/68; PULSE 69; RESP 16; TEMP 36.6; O2SAT 98
[2022-08-01] MEDS: Divalproex Sodium ER 500 MG TAB.ER.24H PO (19:57)
[2022-08-01] MEDS: hydrOXYzine HCL 25 MG TABLET PO (21:05)
[2022-08-01] MEDS: traZODone HCL 50 MG TABLET PO (21:05)
[2022-08-02] MEDS: hydrOXYzine HCL 25 MG TABLET PO ×2 (02:57→13:36)
[2022-08-02] MEDS: Thiamine HCL 100 MG TABLET PO (08:40)
[2022-08-02] MEDS: OLANZapine ODT 10 MG TAB.RAPDIS TRANSLINGU ×2 (08:40→19:36)
[2022-08-02] MEDS: Buprenorphine/Naloxone 12/3 mg FILM 1 FILM SUBLINGUAL (08:40)
[2022-08-02 09:43] VITALS: BP 128/82; PULSE 95; RESP 18; TEMP 36.8; O2SAT 98
[2022-08-02] MEDS: diphenhydrAMINE HCL 25 MG CAPSULE 50 MG PO ×2 (10:15→19:36)
--- NOTE | 2022-08-02 16:05 | P.PNPSI_ITS ---
Subjective Subjective Date of Service: 08/02/22 Reason For Visit: Psychosis Subjective Notes: Section 12B Interim History: Chart reviewed. Discussed with Nursing. Overall patient remains eager for discharge. Endorsed believing that people were tapping his phones and that he was going to . Called his mom say jose luis. Was drinking heavily. Them believed that his mom is going to kill him and ran away. It is unclear if he still has these beliefs. Has been taking medications. Aware Section 12 B. Reports 1 of his future goals will not be bring his as much but very eager to return to work Medication Compliance: Yes Side effects from medications: No Attending Groups: No Review of Systems Acute medical concerns: No Review of Systems Review of Systems Unremarkable Mental Status Exam Mental Status Exam Narrative: Pleasant. Engaged. Appropriately dressed. Organized. Denies depression SI HI. Denies current delusions or hallucinations. Insight and judgment okay Diagnostics Vital Signs (24Hr): Vital Signs - 24 hr 08/01/22 18:00 08/02/22 09:43 Temperature 97.8 F 98.3 F Pulse Rate 69 95 Respiratory Rate 16 18 Blood Pressure 122/68 128/82 Pulse Oximetry 98 98 Oxygen Delivery Method Room Air BMI result Body Mass Index 20.3 Labs Results: 07/29/22 13:11 07/29/22 13:11 Medications Medications Current Medications Acetaminophen (Acetaminophen 325 Mg Tablet) 650 mg PO Q6H PRN PRN Reason: Headache/Pain Mild Scale (1-3) Al Hydroxide/Mg Hydroxide (Magnesium Hydrox/Alum Hydrox 30 Ml Oral.Susp) 30 ml PO Q6H PRN PRN Reason: Heartburn/Nausea Buprenorphine/Naloxone (Buprenorphine/Naloxone 12/3 Mg Film) 1 film SUBLINGUAL DAILY [facility] Last Admin: 08/02/22 08:40 Dose: 1 film Diphenhydramine HCl (Diphenhydramine Hcl 25 Mg Capsule) 50 mg PO Q6H PRN PRN Reason: agitation Last Admin: 08/02/22 10:15 Dose: 50 mg Divalproex Sodium (Divalproex Sodium Er 500 Mg Tab.Er.24h) 500 mg PO BEDTIME [facility] Last Admin: 08/01/22 19:57 Dose: 500 mg Haloperidol (Haloperidol 5 Mg Tablet) 5 mg PO TID PRN PRN Reason: Psychosis Hydroxyzine HCl (Hydroxyzine Hcl 25 Mg Tablet) 25 mg PO Q6H PRN PRN Reason: Anxiety Last Admin: 08/02/22 13:36 Dose: 25 mg Ibuprofen (Ibuprofen 600 Mg Tablet) 600 mg PO Q6H PRN PRN Reason: pain, moderate Last Admin: 07/30/22 20:46 Dose: 600 mg Magnesium Hydroxide (Milk Of Magnesia 30 Ml Oral.Susp) 30 ml PO DAILY PRN PRN Reason: Constipation Nicotine Polacrilex (Nicotine Polacrilex 2 Mg Gum) 2 mg BUCCAL Q1H PRN PRN Reason: Nicotine Cravings Olanzapine (Olanzapine Odt 10 Mg Tab.Rapdis) 10 mg TRANSLINGU BID [facility] Last Admin: 08/02/22 08:40 Dose: 10 mg Olanzapine (Olanzapine Odt 10 Mg Tab.Rapdis) 10 mg TRANSLINGU Q6H PRN PRN Reason: agitation Last Admin: 07/30/22 20:46 Dose: 10 mg Thiamine HCl (Thiamine Hcl 100 Mg Tablet) 100 mg PO DAILY [facility] Last Admin: 08/02/22 08:40 Dose: 100 mg Trazodone HCl (Trazodone Hcl 50 Mg Tablet) 50 mg PO BEDTIME PRN PRN Reason: Insomnia Last Admin: 08/01/22 21:05 Dose: 50 mg Allergies Allergies Allergy/AdvReac Type Severity Reaction Status Date / Time No Known Allergies Allergy Verified 11/10/20 16:08 [No Known Allergies*] Assessment & Plan Assessment & Plan (1) Substance-induced psychotic disorder with delusions: Status: Acute Code(s): F19.950 - Other psychoactive substance use, unspecified with psychoactive subs tance-induced psychotic disorder with delusions Plan Mr. Vegas is a 37 year-old male with extensive substance use hx, who presents with new onset of psychosis and delusions, most likely induced by substances. Pt continues to present as paranoid, internally preoccupied affecting his ability to function, insight and judgment. PLAN 1. Need inpt level of care for further stabilization, safety and containment. 2. On sect 12, as pt declined to sign CV. 08/02/2022: No changes to current regimen I spent minutes with the patient and/or on the patient floor today, greater than?50% of which was spent counseling/coordinating care. Reason for contiued inpatient stay Substantial Risk for: inability to function
[2022-08-02 18:00] VITALS: BP 112/77; PULSE 112; RESP 16; TEMP 36.6
[2022-08-02] MEDS: Divalproex Sodium ER 500 MG TAB.ER.24H PO (19:36)
[2022-08-03 06:00] VITALS: BP 125/75; PULSE 78; RESP 18; TEMP 36.7; O2SAT 99
[2022-08-03] MEDS: Thiamine HCL 100 MG TABLET PO (09:20)
[2022-08-03] MEDS: OLANZapine ODT 10 MG TAB.RAPDIS TRANSLINGU ×3 (09:20→18:59)
[2022-08-03] MEDS: Buprenorphine/Naloxone 12/3 mg FILM 1 FILM SUBLINGUAL (09:22)
[2022-08-03] MEDS: Nicotine Polacrilex 2 MG GUM BUCCAL ×2 (10:18→17:32)
--- NOTE | 2022-08-03 13:01 | P.PNPSI_ITS ---
Subjective Subjective Date of Service: 08/03/22 Reason For Visit: Psychosis Subjective Notes: Section 12B Interim History: Chart reviewed. Discussed with Nursing. Overall patient remains eager for discharge. Adamantly denies feeling paranoid or hallucinating. Denies SI or HI. Has been taking medications. Feels that he has been taking good care of here. Reports sleep has been good. Aware Section 12 B. Medication Compliance: Yes Side effects from medications: No Attending Groups: Yes Review of Systems Acute medical concerns: No Review of Systems Review of Systems Unremarkable Mental Status Exam Mental Status Exam Narrative: Pleasant. Engaged. Appropriately dressed. Organized. Denies depression SI HI. Denies current delusions or hallucinations. Insight and judgment okay Diagnostics Vital Signs (24Hr): Vital Signs - 24 hr 08/02/22 18:00 08/03/22 06:00 Temperature 97.9 F 98.1 F Pulse Rate 112 H 78 Respiratory Rate 16 18 Blood Pressure 112/77 125/75 Pulse Oximetry 99 Oxygen Delivery Method Room Air BMI result Body Mass Index 20.3 Labs Results: 07/29/22 13:11 07/29/22 13:11 Medications Medications Current Medications Acetaminophen (Acetaminophen 325 Mg Tablet) 650 mg PO Q6H PRN PRN Reason: Headache/Pain Mild Scale (1-3) Al Hydroxide/Mg Hydroxide (Magnesium Hydrox/Alum Hydrox 30 Ml Oral.Susp) 30 ml PO Q6H PRN PRN Reason: Heartburn/Nausea Buprenorphine/Naloxone (Buprenorphine/Naloxone 12/3 Mg Film) 1 film SUBLINGUAL DAILY [facility] Last Admin: 08/03/22 09:22 Dose: 1 film Diphenhydramine HCl (Diphenhydramine Hcl 25 Mg Capsule) 50 mg PO Q6H PRN PRN Reason: agitation Last Admin: 08/02/22 19:36 Dose: 50 mg Divalproex Sodium (Divalproex Sodium Er 500 Mg Tab.Er.24h) 500 mg PO BEDTIME [facility] Last Admin: 08/02/22 19:36 Dose: 500 mg Haloperidol (Haloperidol 5 Mg Tablet) 5 mg PO TID PRN PRN Reason: Psychosis Hydroxyzine HCl (Hydroxyzine Hcl 25 Mg Tablet) 25 mg PO Q6H PRN PRN Reason: Anxiety Last Admin: 08/02/22 13:36 Dose: 25 mg Ibuprofen (Ibuprofen 600 Mg Tablet) 600 mg PO Q6H PRN PRN Reason: pain, moderate Last Admin: 07/30/22 20:46 Dose: 600 mg Magnesium Hydroxide (Milk Of Magnesia 30 Ml Oral.Susp) 30 ml PO DAILY PRN PRN Reason: Constipation Nicotine Polacrilex (Nicotine Polacrilex 2 Mg Gum) 2 mg BUCCAL Q1H PRN PRN Reason: Nicotine Cravings Last Admin: 08/03/22 10:18 Dose: 2 mg Olanzapine (Olanzapine Odt 10 Mg Tab.Rapdis) 10 mg TRANSLINGU BID [facility] Last Admin: 08/03/22 09:20 Dose: 10 mg Olanzapine (Olanzapine Odt 10 Mg Tab.Rapdis) 10 mg TRANSLINGU Q6H PRN PRN Reason: agitation Last Admin: 07/30/22 20:46 Dose: 10 mg Thiamine HCl (Thiamine Hcl 100 Mg Tablet) 100 mg PO DAILY [facility] Last Admin: 08/03/22 09:20 Dose: 100 mg Trazodone HCl (Trazodone Hcl 50 Mg Tablet) 50 mg PO BEDTIME PRN PRN Reason: Insomnia Last Admin: 08/01/22 21:05 Dose: 50 mg Allergies Allergies Allergy/AdvReac Type Severity Reaction Status Date / Time No Known Allergies Allergy Verified 11/10/20 16:08 [No Known Allergies*] Assessment & Plan Assessment & Plan (1) Substance-induced psychotic disorder with delusions: Status: Acute Code(s): F19.950 - Other psychoactive substance use, unspecified with psychoactive substance-induced psychotic disorder with delusions Plan Mr. Vegas is a 37 year-old male with extensive substance use hx, who presents with new onset of psychosis and delusions, most likely induced by substances. Pt continues to present as paranoid, internally preoccupied affecting his ability to function, insight and judgment. PLAN 1. Need inpt level of care for further stabilization, safety and containment. 2. On sect 12, as pt declined to sign CV. 08/03/2022: No changes to current regimen I spent minutes with the patient and/or on the patient floor today, greater than?50% of which was spent counseling/coordinating care. Reason for contiued inpatient stay Substantial Risk for: harm to self
[2022-08-03] MEDS: hydrOXYzine HCL 25 MG TABLET PO (14:12)
[2022-08-03 15:57] VITALS: BP 123/80; PULSE 96; TEMP 36.6
[2022-08-03] MEDS: Nicotine 21 MG PATCH.TD24 TRANSDERMA (17:52)
[2022-08-03 18:58] VITALS: BP 130/74; PULSE 99; RESP 16; TEMP 36.3
[2022-08-03] MEDS: diphenhydrAMINE HCL 25 MG CAPSULE 50 MG PO (18:59)
[2022-08-03] MEDS: Divalproex Sodium ER 500 MG TAB.ER.24H PO (18:59)
[2022-08-04] MEDS: hydrOXYzine HCL 25 MG TABLET PO (03:41)
[2022-08-04] MEDS: traZODone HCL 50 MG TABLET PO (03:41)
[2022-08-04 06:00] VITALS: BP 120/78; PULSE 99; RESP 18
[2022-08-04] MEDS: Buprenorphine/Naloxone 12/3 mg FILM 1 FILM SUBLINGUAL (08:14)
[2022-08-04] MEDS: OLANZapine ODT 10 MG TAB.RAPDIS TRANSLINGU (08:14)
[2022-08-04] MEDS: Thiamine HCL 100 MG TABLET PO (08:15)
--- NOTE | 2022-08-04 12:57 | PM.PSYDC ---
DS: Providers Provider Date of Service: 08/04/22 Date of admission: 07/30/22 19:59 Date of discharge: 08/04/22 Primary care physician: Unknown Physician Admitting clinician: Veronica Beltran Attending physician on admission: Az Duran Attending physician on discharge: Az Duran Discharging clinician: Veronica Beltran DS: Diagnosis Discharge Diagnosis (1) Substance-induced psychotic disorder with delusions: Status: Acute DS: Medications Discharge Medications Home Medications: Home Medications Medication Instructions Recorded Confirmed buprenorphine 12 mg-naloxone 3 mg 1 strip sublingual DAILY 07/30/22 07/30/22 sublingual film (Suboxone) Previous Rx's Medication Instructions Recorded divalproex 500 mg tablet,extended 500 mg PO BEDTIME #30 tabs 08/04/22 release 24 hr nicotine (polacrilex) 2 mg gum 2 mg buccal Q1H PRN Nicotine 08/04/22 Cravings #60 ea nicotine 21 mg/24 hr daily 21 mg transdermal DAILY #30 ea 08/04/22 transdermal patch olanzapine 10 mg disintegrating 10 mg translingual Q6H PRN 08/04/22 tablet agitation #30 tabs olanzapine 20 mg disintegrating 20 mg PO BEDTIME #30 tabs 08/04/22 tablet (Zyprexa Zydis) thiamine mononitrate (vit B1) 100 100 mg PO DAILY #30 tabs 08/04/22 mg tablet Mental Status Exam Mental Status Exam Patient Appearance: Appropriate Patient Orientation: Person, Place and Situation Level of Consciousness: Alert Patient Behavior: Talkative, Cooperative, Distractible and Good Eye Contact Mood Description: Constricted Affect Description: Constricted and Flat Patient Cognition Impaired: No Ability to Follow Directions: Good Speech Pattern: Spontaneous Speech Memory Description: Episodic Impaired Hallucinations: None Delusions: Not Present Thought Content: positive for Circumstantial, positive for Suicidal Ideation (denies) and positive for Homicidal Ideation (denies) Judgement: Good Data Data Completed and Pending Completed studies during hospitalization [Text1]: 07/29/22 07/29/22 07/29/22 13:11 13:11 13:36 WBC 10.8 RBC 5.16 Hgb 15.1 Hct 45.7 MCV 88.6 MCH 29.3 MCHC 33.0 RDW 12.5 Plt Count 249 MPV 9.4 Immature Gran % (Auto) 0.4 Neut % (Auto) 82.4 H Lymph % (Auto) 12.0 L [place] % (Auto) 4.9 Eos % (Auto) 0.0 Baso % (Auto) 0.3 Lymph # (Auto) 1.3 [place] # (Auto) 0.5 Eos # (Auto) 0.0 Baso # (Auto) 0.0 Abs Immat Gran (auto) 0.04 H Absolute Neuts (auto) 8.9 H Absolute Nucleated RBC 0.000 Nucleated RBC % (auto) 0.0 Sodium 141 Potassium 4.6 Chloride 103 Carbon Dioxide 28 Anion Gap 15 BUN 15 Creatinine 1.01 Estim Creat Clear Calc 98.2 Estimated GFR > 60 Random Glucose 102 Calcium 9.7 Total Bilirubin 0.5 AST 24 ALT 20 Alkaline Phosphatase 84 Total Protein 7.8 Albumin 4.8 Salicylates < 5.0 L Urine Opiates Screen Urine Fentanyl Screen Acetaminophen < 1 Ur Barbiturates Screen Ur Phencyclidine Scrn Ur Amphetamines Screen U Benzodiazepines Scrn Urine Cocaine Screen U Marijuana (THC) Screen Ethyl Alcohol < 10 COVID-19 ([facility]) Negative COVID-19 Clin Com See Note 07/29/22 20:37 WBC RBC Hgb Hct MCV MCH MCHC RDW Plt Count MPV Immature Gran % (Auto) Neut % (Auto) Lymph % (Auto) [place] % (Auto) Eos % (Auto) Baso % (Auto) Lymph # (Auto) [place] # (Auto) Eos # (Auto) Baso # (Auto) Abs Immat Gran (auto) Absolute Neuts (auto) Absolute Nucleated RBC Nucleated RBC % (auto) Sodium Potassium Chloride Carbon Dioxide Anion Gap BUN Creatinine Estim Creat Clear Calc Estimated GFR Random Glucose Calcium Total Bilirubin AST ALT Alkaline Phosphatase Total Protein Albumin Salicylates Urine Opiates Screen Not Detected Urine Fentanyl Screen Not Detected Acetaminophen Ur Barbiturates Screen Not Detected Ur Phencyclidine Scrn Not Detected Ur Amphetamines Screen Not Detected U Benzodiazepines Scrn Not Detected Urine Cocaine Screen POSITIVE H U Marijuana (THC) Screen POSITIVE H Ethyl Alcohol COVID-19 ([facility]) COVID-19 Clin Com DS: Summary Hospital Course Hospital Course: Admission to adult psychiatry for exacerbation of substance induced mood disorder (opiates, cocaine, alcohol, cannabis). Pt able to stabilize with detox, olanzapine and depakote along with vitamin replacement. Family was pleased with his progress in hospital and agreed he could return to the family home. He will follow up with out patient referrals. Time spent discussing smoking cessation with patient: 3 to 10 minutes Status at Discharge Functional status at discharge: independent ambulation Overall status at discharge: patient is progressing back to baseline Time Spent with Patient Time attestation: Total time spent providing and/or coordinating discharge services: 35 Time spent: Greater than 30 minutes Discharge Plan Discharge Anticipated Discharge Date/Time: 08/04/22 16:08 Patient Disposition: Home, Self-Care Discharge Diagnosis: Substance Induced Mood Disorder Opiate Use Disorder-currently on Suboxone Alcohol Use Disorder Cannabis use disorder Cocaine use disorder Referrals: Suboxone: Betina Rosa ([facility] [place] [facility]) [Other] - 08/05/22 2:15 pm (Appointment is in the main hospital, on the 4th floor ) Therapy: Heron Lara ([facility]) [Other] - 08/05/22 12:00 pm (In office appointment, please arrive 15 minutes prior to appointment to complete paperwork. You must attend this appointment, or your psychiatry appointments get canceled. ) Psych Prescriber: Prashant Novak ([facility]) [Other] - 09/03/22 3:45 pm (In office appointment ) Psych Prescriber: Prashant Novak ([facility]) [Other] - 10/02/22 10:00 am (In office appointment ) [facility] [Provider Group] - 1 Week (Pt referred to the [facility]. ) Discharge Medications: New nicotine (polacrilex) 2 mg Gum 2 mg buccal Q1H PRN (Reason: Nicotine Cravings) Qty: 60 0RF divalproex 500 mg Tablet Extended Release 24 Hr 500 mg PO BEDTIME Qty: 30 0RF nicotine 21 mg/24 hr Patch 24 Hour 21 mg transdermal DAILY Qty: 30 0RF olanzapine 10 mg Tablet,Disintegrating 10 mg translingual Q6H PRN (Reason: agitation) Qty: 30 0RF thiamine mononitrate (vit B1) 100 mg Tablet 100 mg PO DAILY Qty: 30 0RF olanzapine [Zyprexa Zydis] 20 mg tablet,disintegrating 20 mg PO BEDTIME Qty: 30 0RF No Action buprenorphine-naloxone [Suboxone] 12-3 mg film 1 film sublingual DAILY 7 Days Qty: 7 0RF naloxone 4 mg/actuation spray,non-aerosol 4 mg intranasal Q2M PRN (Reason: opioid overdose) Qty: 2 0RF Rx Instructions: spray 1 dose into ONE nostril; alternate nostrils w each dose until help arrives Discharge Orders: Discharge Order (Routine); Ordered 08/04/22 Ordered By: Veronica Beltran Diet: Advance to usual diet Activity on Discharge: As tolerated Stand Alone Forms: Patient Portal Discharge page, Community Support Print Language: Tamazight Care Plan Goals: Maintain mood and safe behaviors Take medications as directed Practice coping skills Continue with out patient providers and reach out as needed Health Concerns: Mood and behavioral stabilization Plan of Treatment: Follow up with out patient providers Take medications as directed Assessment: Kyrie was interviewed prior to discharge and found to be fully oriented and without SI and HI. He is alert, oriented without brianna or symptoms of psychosis. He has insight and demonstrates reasonable judgment in terms of wanting to continue out pt treatment. He is not in imminent risk of harm to self or others and has a safety plan that included presenting to the ER or calling 911 if feeling unsafe. We discussed that he may return for assessment at any time. He has been observed by nursing and unit team members for the admission and has not engaged in any behaviors that suggest dangerousness to self or others and has demonstrated appropriate behaviors and impulse control. He has been visited by his family during the admission who find him to have returned to his baseline. They want him to come home and continue treatment on a out patient basis. Discharge Date/Time: 08/04/22 16:30
== END 2022-08-04 16:30 | disposition home or self-care (01) | DRG 774 ==
LOC: HO.ED 16:03 → HO.PM5 07-30 20:29
PROVIDERS: Physician Assistant Medical; Admitting Provider Psychiatry & Neurology Psychiatry; Emergency Provider Emergency Medicine; Visit Provider Clinical Nurse Specialist Psychiatric/Mental Health, Adult
DX: F19.150 Other psychoactive substance abuse with psychoactive substance-induced psychotic disorder with delusions (principal); F14.10 Cocaine abuse, uncomplicated; R45.851 Suicidal ideations; F10.20 Alcohol dependence, uncomplicated; F17.210 Nicotine dependence, cigarettes, uncomplicated; F12.10 Cannabis abuse, uncomplicated; Z20.822 Contact with and (suspected) exposure to COVID-19; Z23 Encounter for immunization; Z71.6 Tobacco abuse counseling; Z79.899 Other long term (current) drug therapy
CPT/HCPCS: 80053; 80143; 80179; 80307; 82077; 85025; 87635; 90686; 90792; 93005; 99285; Q0163

== ENCOUNTER → 2022-08-05 14:08 | Outpatient (BNVA) | payer MEDICAID, SELFPAY | PROVIDERS: Visit Provider Nurse Practitioner Psychiatric/Mental Health | DX: Z51.81 Encounter for therapeutic drug level monitoring (principal); F11.20 Opioid dependence, uncomplicated | CPT/HCPCS: 80305; 99212 ==

== ENCOUNTER 2023-11-24 11:53 | Outpatient (REF) | payer MEDICAID, SELFPAY ==
[2023-11-24 14:06] LABS: Alanine Aminotransferase 17 U/L (0-40); Albumin Level 4.3 g/dL (3.5-5.0); Alkaline Phosphatase 77 U/L (39-117); Aspartate Amino Transferase 16 U/L (5-37); Bilirubin Direct 0.1 mg/dL (0.0-0.5); Bilirubin Total 0.3 mg/dL (0.0-1.0); Total Protein 7.1 g/dL (6.5-8.0)
[2023-11-25 05:05] LABS: Syphilis Screen Nonreactive (Nonreactive)
[2023-11-25 07:33] LABS: HBc Num1 6.37 S/CO (0.00-0.79); HBsAGNum1 0.31 S/CO (0.00-0.99); HIV AB/AG Nonreactive (Nonreactive); HIV Num 1 0.06 S/CO (0.00-0.99); Hepatitis B Surface Antigen Negative (Negative); ~HepC Num1 0.09 S/CO (0.00-0.79); ~Hepatitis B Surface Antibody REACTIVE (Nonreactive); ~Hepatitis C Antibody Nonreactive (Nonreactive)
[2023-11-25 07:39] LABS: Hepatitis A Antibody IgG Nonreactive (Nonreactive); ~Hepatitis A Antibody IgG 0.38 S/CO (0.00-0.99)
[2023-11-25 09:36] LABS: HBc Num2 6.47 S/CO; HBc Num3 6.41 S/CO; Hepatitis B Core Antibody Reactive (Nonreactive)
[2023-11-27 07:43] LABS: TS Negative Control Passed; TS Panel A 0; TS Panel B 0; TS Positive Control Passed; TSpotTB Negative (Negative)
== END 2023-11-24 11:54 | disposition home or self-care (01) ==
LOC: HO.HHCL 11:53
PROVIDERS: Visit Provider Family Medicine
DX: Z11.4 Encounter for screening for human immunodeficiency virus [HIV] (principal); Z11.1 Encounter for screening for respiratory tuberculosis; F11.20 Opioid dependence, uncomplicated
CPT/HCPCS: 36415; 80076; 86481; 86704; 86706; 86708; 86780; 86803; 87340; 87389

== ENCOUNTER 2024-05-06 13:07 | Inpatient (IN) | payer MEDICAID, OTHER, SELFPAY ==
[2024-05-06 13:30] VITALS: BP 148/94; PULSE 101; RESP 14; TEMP 37; O2SAT 99; BMI 27.9
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
[2024-05-06 13:51] LABS: Appearance Urine Clear; Color Urine Dark Yellow; Glucose Urine UA Negative (Negative); Leukocyte Esterase Urine Negative (Negative); Nitrite Urine Negative (Negative); Specific Gravity - Urine 1.025 (1.005-1.025); Urine Blood Negative (Negative); Urine Ketones 15 mg/dL (Negative); Urine Protein Trace mg/dL (Neg-Trace)
[2024-05-06 13:56] LABS: Amphetamine Screen Urine NOT DETECTED (Not Detect); Barbiturates, Urine NOT DETECTED (Not Detect); Benzodiazepines Screen Urine NOT DETECTED (Not Detect); Cannabinoid Screen Urine POSITIVE (Not Detect); Cocaine Screen Urine NOT DETECTED (Not Detect); Opiate Screen Urine NOT DETECTED (Not Detect); Phencyclidine Screen Urine NOT DETECTED (Not Detect)
[2024-05-06 13:57] LABS: Buprenorphine Scr POSITIVE (Not Detect); Fentanyl, urine Not Detected (Not Detect); Methadone Screen, Urine NOT DETECTED (Not Detect); Oxycodone Screen Urine NOT DETECTED (Not Detect)
[2024-05-06 14:19] LABS: MANUAL DIFF FLAG NO
[2024-05-06 14:20] LABS: Basophils Percent Auto 0.3 % (0-2); Hematocrit 39.5 % (42.0-52.0); Hemoglobin 13.6 g/dl (14.0-18.0); Imm Gran Abs Auto 0.03 X10*3/uL (0.00-0.03); Imm Gran Pct Auto 0.3 % (0.0-0.4); Lymphocytes Absolute Auto 1.1 X10*3/uL (1.2-4.9); Lymphocytes Percent Auto 12.4 % (20-40); Mean Corpuscular HGB Conc 34.4 g/dl (31.0-36.0); Mean Corpuscular Volume 84.2 fL (80.0-98.0); Mean Platelet Volume 10.3 fL (9.4-12.4); Monocytes Absolute Auto 0.5 X10*3/uL (0.1-1.2); Monocytes Percent Auto 5.3 % (2-11); Neutrophils Absolute Auto 7.1 x10*3/uL (2.0-8.3); Neutrophils Percent Auto 81.7 % (45-73); Platelet Count 258 X10*3/uL (160-400); Red Blood Count 4.69 X10*6/uL (4.60-5.80); Red Cell Distribution Width 13.6 % (11.0-16.0); White Blood Count 8.6 X10*3/uL (4.8-10.8)
[2024-05-06 14:39] LABS: Anion Gap 15 (12-20); Blood Urea Nitrogen 8 mg/dL (9-16); Carbon Dioxide 27 mmol/L (22-29); Chloride 107 mmol/L (96-108); Creatinine Clr Calc Pharmacy 141.7; Estimated Glomerular Filt Rate > 60; Potassium 3.5 mmol/L (3.3-5.1); Sodium 145 mmol/L (135-145)
[2024-05-06 14:40] LABS: Alanine Aminotransferase 24 U/L (0-40); Alkaline Phosphatase 76 U/L (39-117); Aspartate Amino Transferase 30 U/L (5-37); Bilirubin Total 0.5 mg/dL (0.0-1.0); Calcium 10.1 mg/dL (8.4-10.2); Ethanol < 10 mg/dL; Glucose Random 113 mg/dL (60-115); Total Protein 7.7 g/dL (6.5-8.0)
--- NOTE | 2024-05-06 14:41 | PC.NURSE ---
Addendum entered by Nisha Gayle 05/06/24 17:41: Patient comes in today on a Section 12a written by PD. According to EMS and PD, patient has been acting erratic at home, agressive towards mother, destroying household objects. He came in handcuffed by PD because he apparent tried to run prior to coming to the ER. patient calm and cooperative with bladder changer process, as well as with lab work. patient denies SI/HI/AH/VH. He denies having any aggression at home. He offers no physical complaints. Denies taking medications at home. Patient appears to be disorganized, unable to answer questions fully in a linear thought process. He does appear to be responding to internal stimuli at times. Patients mother reports that he is bipolar and unmedicated Original Note: Late entry:
[2024-05-06 15:04] VITALS: PULSE 94; RESP 16; O2SAT 99
--- NOTE | 2024-05-06 17:40 | PC.NURSE ---
Since arrival patient has been pacing around BH pod, occasionally engaging in self dialogue. Patient offers no complaints when this RN stops him. Medication offered, patient declined.
--- NOTE | 2024-05-06 17:51 | PC.NURSE ---
patient relays to this RN that he takes no medications at home, including suboxone
--- NOTE | 2024-05-06 19:13 | PC.NURSE ---
patient appears to remain active, about every five minutes pacing, not spontaneous in interaction with others.
--- NOTE | 2024-05-07 | ECG_ITS ---
Test Reason : CHECK FOR PROLONGED QT Blood Pressure : / mmHG Vent. Rate : 065 BPM Atrial Rate : 065 BPM P-R Int : 138 ms QRS Dur : 088 ms QT Int : 406 ms P-R-T Axes : 049 024 052 degrees QTc Int : 422 ms Normal sinus rhythm Nonspecific T wave abnormality Abnormal ECG When compared with ECG of 30-JUL-2022 10:01, No significant change was found Referred By: Generic ED Physician Electronically Signed By:TEETEE COLLADO MD
--- NOTE | 2024-05-07 07:01 | PC.NURSE ---
Assumed care of patient at 0645. Patient is pacing the unit. No signs of distress, breathing is even and unlabored.
[2024-05-07 13:20] VITALS: BP 133/73; PULSE 80; RESP 16; TEMP 36.1; O2SAT 96
--- NOTE | 2024-05-07 13:53 | MHC.EDTECH ---
Confirmed belongings with pt. Pt states I only had one bag of belongings I don't have a phone with me . 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 Belongings taken with pt and RN to the floor.
[2024-05-07 13:57] VITALS: BMI 23.2
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
[2024-05-07 20:00] VITALS: BP 134/78; PULSE 87; RESP 18; TEMP 35.7; O2SAT 96
[2024-05-07] MEDS: OLANZapine 10 MG TABLET PO (21:26)
[2024-05-08] MEDS: Acetaminophen 325 MG TABLET 650 MG PO ×2 (07:15→16:29)
[2024-05-08 08:00] VITALS: BP 114/63; PULSE 84; RESP 16; TEMP 36.3; O2SAT 100
[2024-05-08] MEDS: OLANZapine 10 MG TABLET PO ×2 (09:03→20:48)
[2024-05-08] MEDS: Magnesium Hydrox/Alum Hydrox 30 ML ORAL.SUSP PO (09:36)
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
[2024-05-08 13:33] LABS: Estimated Average Glucose 97 mg/dL
--- NOTE | 2024-05-08 14:53 | PC.NURSE ---
Pt agreed to visit w/ mother and asked her if she was there to pick him up. When mom told him no, pt ended the visit. Mom asked to speak with doctor after pt ended visit and was informed that there is no release signed to share information. Mom understood and shared that there is extensive mental health issues on both sides of the patients family. Mom also shared that the pts brother had a similar presentation in the past and is currently prescribed 450mg of [place] daily and is doing very well. TW told mom the information would be passed along and a second attempt to have ZHAO signed would be given. Pt was approached after mom left unit and was asked if he would be willing to sign a release so that mom and his provider could speak in order to formulate a plan for what may be helpful for his treatment. Pt was agreeable and ZHAO completed. Provider DENILSON notified in person.
[2024-05-08] MEDS: hydrOXYzine HCL 25 MG TABLET PO (17:12)
[2024-05-08 19:59] VITALS: BP 125/71; PULSE 96; TEMP 36.3; O2SAT 98
[2024-05-08] MEDS: Lithium Carbonate ER 450 MG TABLET.ER PO (20:48)
[2024-05-09] MEDS: Acetaminophen 325 MG TABLET 650 MG PO ×2 (03:52→22:15)
[2024-05-09] MEDS: OLANZapine 10 MG TABLET PO (08:21)
[2024-05-09] MEDS: Nicotine Polacrilex 2 MG GUM 4 MG BUCCAL (08:41)
[2024-05-09] MEDS: Buprenorphine/Naloxone 2/0.5mg FILM 1 FILM SUBLINGUAL (11:17)
[2024-05-09 14:38] VITALS: BP 138/89; PULSE 74; RESP 16; TEMP 36.4; O2SAT 99
[2024-05-09] MEDS: hydrOXYzine HCL 25 MG TABLET PO (16:43)
--- NOTE | 2024-05-09 17:04 | P.PNPSI_ITS ---
Subjective Subjective Date of Service: 05/09/24 Reason For Visit: Psychosis, polysubstance Use Disorder Subjective Notes: Conditional Voluntary Healthcare Proxy: No Guardianship: No Medical Problems Affecting Mental Status: No Interim History: Pt requests to re-start Suboxone. Reports he will not take Olanzapine, will accept [place]. Will trial Jhon Mother is calling to arrange a meeting to discuss her concerns. Pt unsure if he wants this as he reports family to be in a chaotic state and mother mentally ill. Medication Compliance: Intermittent Side effects from medications: No Attending Groups: No Review of Systems Acute medical concerns: No Medical Review of Systems: unchanged Review of Systems Review of Systems Yes all other systems are reviewed and are negative (denies) Mental Status Exam Mental Status Exam Patient Appearance: Fatigued Patient Orientation: Person, Place and Situation Level of Consciousness: Alert Patient Behavior: Guarded and Suspicious Mood Description: Withdrawn Affect Description: Withdrawn Patient Cognition Impaired: No Ability to Follow Directions: Fair Speech Pattern: Impoverished and Spontaneous Speech Hallucinations: Auditory Delusions: Paranoid Ideation and Present Thought Process: Distracted Thought Content: positive for Perseveration and positive for Preoccupation Depressive Symptoms: Increased Irritability Judgement: Poor Diagnostics Vital Signs (24Hr): Vital Signs - 24 hr 05/08/24 19:59 05/09/24 14:38 Temperature 97.3 F 97.5 F Pulse Rate 96 74 Respiratory Rate 16 Blood Pressure 125/71 138/89 Pulse Oximetry 98 99 Oxygen Delivery Method Room Air Room Air BMI result Body Mass Index 23.2 Labs 05/06/24 14:00 05/06/24 14:00 Labs: Laboratory Results - last 48 hr 05/06/24 14:00 Estimat Average Glucose 97 Hemoglobin A1c % 5.0 Medications Medications Current Medications Acetaminophen (Acetaminophen 325 Mg Tablet) 650 mg PO Q6H PRN PRN Reason: Headache/Pain Mild Scale (1-3) Last Admin: 05/09/24 03:52 Dose: 650 mg Al Hydroxide/Mg Hydroxide (Magnesium Hydrox/Alum Hydrox 30 Ml Oral.Susp) 30 ml PO Q6H PRN PRN Reason: Heartburn/Nausea Last Admin: 05/08/24 09:36 Dose: 30 ml Buprenorphine/Naloxone (Buprenorphine/Naloxone 2/0.5mg Film) 1 film SUBLINGUAL DAILY [facility]O Last Admin: 05/09/24 11:17 Dose: 1 film Hydroxyzine HCl (Hydroxyzine Hcl 25 Mg Tablet) 25 mg PO Q6H PRN PRN Reason: Anxiety Last Admin: 05/09/24 16:43 Dose: 25 mg [place] Carbonate ([place] Carbonate Er 450 Mg Tablet.Er) 450 mg PO BEDTIME FREDO Last Admin: 05/08/24 20:48 Dose: 450 mg Magnesium Hydroxide (Milk Of Magnesia 30 Ml Oral.Susp) 30 ml PO DAILY PRN PRN Reason: Constipation Nicotine (Nicotine 21 Mg Patch.Td24) 21 mg TRANSDERMA DAILY [facility] Last Admin: 05/09/24 08:22 Dose: Not Given Nicotine Polacrilex (Nicotine Polacrilex 2 Mg Gum) 4 mg BUCCAL Q2H PRN PRN Reason: Nicotine Cravings Last Admin: 05/09/24 08:41 Dose: 4 mg Olanzapine (Olanzapine 5 Mg Tablet) 5 mg PO TID PRN PRN Reason: agitation Quetiapine Fumarate (Quetiapine Fumarate 25 Mg Tablet) 75 mg PO BID [facility] Trazodone HCl (Trazodone Hcl 50 Mg Tablet) 50 mg PO BEDTIME MRX1 PRN PRN Reason: Insomnia Allergies Allergies Allergy/AdvReac Type Severity Reaction Status Date / Time No Known Allergies Allergy Verified 05/06/24 13:33 [No Known Allergies*] Assessment & Plan Assessment & Plan (1) Unspecified psychosis: Status: Acute Code(s): F29 - Unspecified psychosis not due to a substance or known physiological condition (2) Polysubstance use disorder: Status: Acute Code(s): F19.90 - Other psychoactive substance use, unspecified, uncomplicated Plan 38 yo male, with psychosis and polysubstance use disorder. Plan: Admit, CV, 15 minute checks Collateral contact with family, providers ([facility]) Medications: By history, pt did well with Olanzapine and Valproate. Mother visited today and reports, by history, family members do very well with [place]. Will initiate a low dose and re-start Olanzapine. Diagnostics as needed 05/09: DC Olanzapine Seroquel trial Suboxone re-start Addiction consult Reason for continued inpatient stay Substantial Risk for: rapid decompensation Time Spent With Patient Time: Total time managing care of this patient today ____ minutes.
[2024-05-09 20:00] VITALS: BP 140/84; PULSE 123; RESP 18; TEMP 36.4; O2SAT 97
[2024-05-09] MEDS: QUEtiapine Fumarate 25 MG TABLET 75 MG PO (20:44)
[2024-05-09] MEDS: Lithium Carbonate ER 450 MG TABLET.ER PO (20:44)
[2024-05-10] MEDS: hydrOXYzine HCL 25 MG TABLET PO ×2 (00:19→15:50)
[2024-05-10] MEDS: traZODone HCL 50 MG TABLET PO ×2 (00:19→21:12)
[2024-05-10 08:00] VITALS: BP 128/80; PULSE 107; RESP 16; TEMP 35.9; O2SAT 99
[2024-05-10] MEDS: QUEtiapine Fumarate 25 MG TABLET 75 MG PO ×2 (08:40→21:13)
--- NOTE | 2024-05-10 11:45 | P.PNPSI_ITS ---
Subjective Subjective Date of Service: 05/10/24 Reason For Visit: Psychosis, polysubstance Use Disorder Subjective Notes: Conditional Voluntary Healthcare Proxy: No Guardianship: No Medical Problems Affecting Mental Status: No Interim History: Intermittent med compliance. Suboxone compliance intermittent Seroquel compliance less than scheduled dose Irritable after a disussion with mom. Pt agreed to a meeting 05/11 1pm with mom and team. Pacing, self dialoguing Mom had asked for [place] trial. Pt had refused Olanzapine, Seroquel trial ongoing as well. Medication Compliance: Intermittent Side effects from medications: No Attending Groups: No Review of Systems Acute medical concerns: No Medical Review of Systems: unchanged Review of Systems Review of Systems Yes all other systems are reviewed and are negative Mental Status Exam Mental Status Exam Patient Appearance: Fatigued Patient Orientation: Person, Place and Situation Level of Consciousness: Alert Patient Behavior: Guarded and Suspicious Mood Description: Withdrawn Affect Description: Withdrawn Patient Cognition Impaired: No Ability to Follow Directions: Fair Speech Pattern: Impoverished and Spontaneous Speech Hallucinations: Auditory Delusions: Paranoid Ideation and Present Thought Process: Distracted Thought Content: positive for Perseveration and positive for Preoccupation Depressive Symptoms: Increased Irritability Judgement: Poor Diagnostics Vital Signs (24Hr): Vital Signs - 24 hr 05/09/24 14:38 05/09/24 20:00 05/10/24 08:00 Temperature 97.5 F 97.5 F 96.6 F L Pulse Rate 74 123 H 107 H Respiratory Rate 16 18 16 Blood Pressure 138/89 140/84 H 128/80 Pulse Oximetry 99 97 99 Oxygen Delivery Method Room Air Room Air Room Air BMI result Body Mass Index 23.2 Labs 05/06/24 14:00 05/06/24 14:00 Labs: Laboratory Results - last 48 hr 05/06/24 14:00 Estimat Average Glucose 97 Hemoglobin A1c % 5.0 Medications Medications Current Medications Acetaminophen (Acetaminophen 325 Mg Tablet) 650 mg PO Q6H PRN PRN Reason: Headache/Pain Mild Scale (1-3) Last Admin: 05/09/24 22:15 Dose: 650 mg Al Hydroxide/Mg Hydroxide (Magnesium Hydrox/Alum Hydrox 30 Ml Oral.Susp) 30 ml PO Q6H PRN PRN Reason: Heartburn/Nausea Last Admin: 05/08/24 09:36 Dose: 30 ml Buprenorphine/Naloxone (Buprenorphine/Naloxone 2/0.5mg Film) 1 film SUBLINGUAL DAILY [facility] Last Admin: 05/10/24 08:42 Dose: Not Given Hydroxyzine HCl (Hydroxyzine Hcl 25 Mg Tablet) 25 mg PO Q6H PRN PRN Reason: Anxiety Last Admin: 05/10/24 00:19 Dose: 25 mg [place] Carbonate ([place] Carbonate Er 450 Mg Tablet.Er) 450 mg PO BEDTIME FREDO Last Admin: 05/09/24 20:44 Dose: 450 mg Magnesium Hydroxide (Milk Of Magnesia 30 Ml Oral.Susp) 30 ml PO DAILY PRN PRN Reason: Constipation Nicotine (Nicotine 21 Mg Patch.Td24) 21 mg TRANSDERMA DAILY [facility] Last Admin: 05/10/24 08:42 Dose: Not Given Nicotine Polacrilex (Nicotine Polacrilex 2 Mg Gum) 4 mg BUCCAL Q2H PRN PRN Reason: Nicotine Cravings Last Admin: 05/09/24 08:41 Dose: 4 mg Olanzapine (Olanzapine 5 Mg Tablet) 5 mg PO TID PRN PRN Reason: agitation Quetiapine Fumarate (Quetiapine Fumarate 25 Mg Tablet) 75 mg PO BID [facility] Last Admin: 05/10/24 08:40 Dose: 25 mg Trazodone HCl (Trazodone Hcl 50 Mg Tablet) 50 mg PO BEDTIME MRX1 PRN PRN Reason: Insomnia Last Admin: 05/10/24 00:19 Dose: 50 mg Allergies Allergies Allergy/AdvReac Type Severity Reaction Status Date / Time No Known Allergies Allergy Verified 05/06/24 13:33 [No Known Allergies*] Assessment & Plan Assessment & Plan (1) Unspecified psychosis: Status: Acute Code(s): F29 - Unspecified psychosis not due to a substance or known physiological condition (2) Polysubstance use disorder: Status: Acute Code(s): F19.90 - Other psychoactive substance use, unspecified, uncomplicated Plan 38 yo male, with psychosis and polysubstance use disorder. Plan: Admit, CV, 15 minute checks Collateral contact with family, providers ([facility]) Medications: By history, pt did well with Olanzapine and Valproate. Mother visited today and reports, by history, family members do very well with [place]. Will initiate a low dose and re-start Olanzapine. Diagnostics as needed 05/09: DC Olanzapine Seroquel trial Suboxone re-start Addiction consult 05/10 Continue tx Reason for continued inpatient stay Substantial Risk for: rapid decompensation Time Spent With Patient Time: Total time managing care of this patient today ____ minutes.
[2024-05-10 14:31] LABS: Cholesterol 121 mg/dL (<200); HDL Cholesterol 53 mg/dL (>40); LDL Cholesterol Calculated 35 mg/dL (<100); Magnesium 2.1 mg/dL (1.6-2.6); Triglycerides 165 mg/dL (<150)
[2024-05-10 14:45] LABS: Thyroid Stimulating Hormone 0.96 uIU/mL (0.32-4.0)
[2024-05-10 14:56] LABS: Folate 7.6 ng/mL (> or = 4.0); Vitamin B12 569 pg/mL (200-900)
--- NOTE | 2024-05-10 15:35 | MHC.RECOVRN ---
Met with pt. in room 516-1 to discuss ongoing suboxone use and offer support and education. Pt reports that prior to inpt. hosp. he was tapering off his suboxone and got to the point where he was only using a little piece if he needed it . He is not interested in re starting at this time and accepted our outpt. clinic information for further support needs. Report to [facility] provider Gavi Reed NP.
[2024-05-10] MEDS: Acetaminophen 325 MG TABLET 650 MG PO (15:49)
[2024-05-10] MEDS: Buprenorphine/Naloxone 2/0.5mg FILM 1 FILM SUBLINGUAL (17:02)
--- NOTE | 2024-05-10 18:39 | PM.EVENT ---
Event Note Date of Service: 05/10/24 Event Note: Addiction consult placed for patient to restart Suboxone Patient seen by cyanide case hardener, he reports that he had previously been on suboxone and had tapered himself off. States he took small pieces PRN for cravings. Stated he does not wish to resume buprenorphine. See cyanide case hardener note for details Time Spent With Patient Time: Total time managing care of this patient today ____ minutes.
[2024-05-10 20:00] VITALS: BP 135/86; PULSE 118; RESP 16; TEMP 36.4; O2SAT 97
[2024-05-10] MEDS: Lithium Carbonate ER 450 MG TABLET.ER PO (21:12)
[2024-05-11] MEDS: OLANZapine 5 MG TABLET PO ×2 (02:25→20:20)
[2024-05-11 08:00] VITALS: BP 129/86; PULSE 100; RESP 18; TEMP 36.4; O2SAT 99
[2024-05-11] MEDS: Buprenorphine/Naloxone 2/0.5mg FILM 1 FILM SUBLINGUAL (08:51)
[2024-05-11] MEDS: QUEtiapine Fumarate 25 MG TABLET 75 MG PO ×2 (08:51→20:20)
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
[2024-05-11] MEDS: Acetaminophen 325 MG TABLET 650 MG PO (18:00)
[2024-05-11 20:00] VITALS: BP 109/74; PULSE 120; RESP 15; TEMP 36; O2SAT 98
[2024-05-11] MEDS: traZODone HCL 50 MG TABLET PO (20:19)
[2024-05-11] MEDS: Lithium Carbonate ER 450 MG TABLET.ER PO (20:19)
[2024-05-12 08:00] VITALS: BP 137/86; PULSE 111; RESP 16; TEMP 36; O2SAT 98
[2024-05-12] MEDS: Buprenorphine/Naloxone 2/0.5mg FILM 1 FILM SUBLINGUAL (08:42)
[2024-05-12] MEDS: QUEtiapine Fumarate 25 MG TABLET 75 MG PO (08:42)
--- NOTE | 2024-05-12 10:54 | HO.PSYCHPN ---
Subjective Subjective Date of Service: 05/12/24 Reason For Visit: Psychosis, polysubstance Use Disorder Subjective Notes: Conditional Voluntary Healthcare Proxy: No Guardianship: No Medical Problems Affecting Mental Status: No Interim History: Refused to meet to discuss medications. [place]/ Seroquel discontinued Depakote 1000 mg ER HS and Risperdal 1 mg bid started. Pt would not discuss changes. Family would like him treated and discharged. We will attempt to work with these requests. Medication Compliance: Intermittent Side effects from medications: No Attending Groups: No Review of Systems Acute medical concerns: No Medical Review of Systems: unchanged Review of Systems Review of Systems Yes Unobtainable due to mental status Mental Status Exam Mental Status Exam Patient Appearance: Fatigued Patient Orientation: Person, Place and Situation Level of Consciousness: Alert Patient Behavior: Guarded and Suspicious Mood Description: Withdrawn Affect Description: Withdrawn Patient Cognition Impaired: No Ability to Follow Directions: Fair Speech Pattern: Impoverished and Spontaneous Speech Hallucinations: Auditory Delusions: Paranoid Ideation and Present Thought Process: Distracted Thought Content: positive for Perseveration and positive for Preoccupation Depressive Symptoms: Increased Irritability Judgement: Poor Diagnostics Vital Signs (24Hr): Vital Signs - 24 hr 05/11/24 20:00 Temperature 96.8 F Pulse Rate 120 H Respiratory Rate 15 Blood Pressure 109/74 Pulse Oximetry 98 BMI result Body Mass Index 23.2 Labs 05/06/24 14:00 05/06/24 14:00 Labs: Laboratory Results - last 48 hr 05/10/24 13:53 Magnesium 2.1 Triglycerides 165 H Cholesterol 121 LDL Cholesterol, Calc 35 HDL Cholesterol 53 Vitamin B12 569 Folate 7.6 TSH 0.96 Free T4 1.10 Medications Medications Current Medications Acetaminophen (Acetaminophen 325 Mg Tablet) 650 mg PO Q6H PRN PRN Reason: Headache/Pain Mild Scale (1-3) Last Admin: 05/11/24 18:00 Dose: 650 mg Al Hydroxide/Mg Hydroxide (Magnesium Hydrox/Alum Hydrox 30 Ml Oral.Susp) 30 ml PO Q6H PRN PRN Reason: Heartburn/Nausea Last Admin: 05/08/24 09:36 Dose: 30 ml Buprenorphine/Naloxone (Buprenorphine/Naloxone 2/0.5mg Film) 1 film SUBLINGUAL DAILY FREDO Last Admin: 05/12/24 08:42 Dose: 1 film Divalproex Sodium (Divalproex Sodium Er 500 Mg Tab.Er.24h) 1,000 mg PO BEDTIME FREDO Hydroxyzine HCl (Hydroxyzine Hcl 25 Mg Tablet) 25 mg PO Q6H PRN PRN Reason: Anxiety Last Admin: 05/10/24 15:50 Dose: 25 mg Magnesium Hydroxide (Milk Of Magnesia 30 Ml Oral.Susp) 30 ml PO DAILY PRN PRN Reason: Constipation Nicotine (Nicotine 21 Mg Patch.Td24) 21 mg TRANSDERMA DAILY [facility]EDO Last Admin: 05/11/24 09:03 Dose: Not Given Nicotine Polacrilex (Nicotine Polacrilex 2 Mg Gum) 4 mg BUCCAL Q2H PRN PRN Reason: Nicotine Cravings Last Admin: 05/09/24 08:41 Dose: 4 mg Olanzapine (Olanzapine 5 Mg Tablet) 5 mg PO TID PRN PRN Reason: agitation Last Admin: 05/11/24 20:20 Dose: 5 mg Risperidone (Risperidone 1 Mg Tablet) 1 mg PO BID FREDO Trazodone HCl (Trazodone Hcl 50 Mg Tablet) 50 mg PO BEDTIME MRX1 PRN PRN Reason: Insomnia Last Admin: 05/11/24 20:19 Dose: 50 mg Allergies Allergies Allergy/AdvReac Type Severity Reaction Status Date / Time No Known Allergies Allergy Verified 05/06/24 13:33 [No Known Allergies*] Assessment & Plan Assessment & Plan (1) Unspecified psychosis: Status: Acute Code(s): F29 - Unspecified psychosis not due to a substance or known physiological condition (2) Polysubstance use disorder: Status: Acute Code(s): F19.90 - Other psychoactive substance use, unspecified, uncomplicated Plan 38 yo male, with psychosis and polysubstance use disorder. Plan: Admit, CV, 15 minute checks Collateral contact with family, providers ([facility]) Medications: By history, pt did well with Olanzapine and Valproate. Mother visited today and reports, by history, family members do very well with [place]. Will initiate a low dose and re-start Olanzapine. Diagnostics as needed 05/09: DC Olanzapine Seroquel trial Suboxone re-start Addiction consult 05/12 Discontinue Seroquel, [place] Depakote ER 1000 mg HS Risperdal 1 mg bid Benztropine 0.5 mg bid prn Reason for continued inpatient stay Substantial Risk for: rapid decompensation Time Spent With Patient Time: Total time managing care of this patient today ____ minutes.
[2024-05-12 20:00] VITALS: BP 124/58; PULSE 110; TEMP 36.4; O2SAT 94
[2024-05-12] MEDS: Acetaminophen 325 MG TABLET 650 MG PO (21:54)
[2024-05-12] MEDS: Divalproex Sodium ER 500 MG TAB.ER.24H 1000 MG PO (21:56)
[2024-05-12] MEDS: risperiDONE 1 MG TABLET PO (21:57)
[2024-05-12] MEDS: traZODone HCL 50 MG TABLET PO (21:57)
[2024-05-13 08:00] VITALS: BP 114/65; PULSE 92; RESP 18; TEMP 36.2; O2SAT 99
[2024-05-13] MEDS: risperiDONE 1 MG TABLET PO ×2 (08:37→20:58)
[2024-05-13] MEDS: Buprenorphine/Naloxone 2/0.5mg FILM 1 FILM SUBLINGUAL (08:37)
--- NOTE | 2024-05-13 12:31 | HO.PSYCHPN ---
Subjective Subjective Date of Service: 05/13/24 Reason For Visit: Psychosis, polysubstance Use Disorder Subjective Notes: Conditional Voluntary Interim History: Pt met with this production underwriter. Pt presented as guarded. Initially reported medications are doing what they are supposed to, when asked what has he noticed, he states he does not need any medications... I'm not crazy! He asked this production underwriter when can he go home, which this production underwriter explained depends on primary team, he states If you don't know, I don't need to talk to you. He has been pacing, scanning the room and halls, not interacting with peers. Review of Systems Review of Systems Yes all other systems are reviewed and are negative and Unobtainable due to mental status Constitutional: Reports as per [facility] Mental Status Exam Mental Status Exam Patient Orientation: Person, Place and Situation Level of Consciousness: Alert Patient Behavior: Guarded and Suspicious Mood Description: Withdrawn Affect Description: Withdrawn Patient Cognition Impaired: No Ability to Follow Directions: Fair Speech Pattern: Impoverished and Spontaneous Speech Diagnostics Vital Signs (24Hr): Vital Signs - 24 hr 05/12/24 20:00 05/13/24 08:00 Temperature 97.5 F 97.1 F Pulse Rate 110 H 92 Respiratory Rate 18 Blood Pressure 124/58 L 114/65 Pulse Oximetry 94 99 Oxygen Delivery Method Room Air Room Air BMI result Body Mass Index 23.2 Labs 05/06/24 14:00 05/06/24 14:00 Medications Medications Current Medications Acetaminophen (Acetaminophen 325 Mg Tablet) 650 mg PO Q6H PRN PRN Reason: Headache/Pain Mild Scale (1-3) Last Admin: 05/12/24 21:54 Dose: 650 mg Al Hydroxide/Mg Hydroxide (Magnesium Hydrox/Alum Hydrox 30 Ml Oral.Susp) 30 ml PO Q6H PRN PRN Reason: Heartburn/Nausea Last Admin: 05/08/24 09:36 Dose: 30 ml Benztropine Mesylate (Benztropine Mesylate 0.5 Mg Tablet) 0.5 mg PO BID PRN PRN Reason: EPS Buprenorphine/Naloxone (Buprenorphine/Naloxone 2/0.5mg Film) 1 film SUBLINGUAL DAILY FREDO Last Admin: 05/13/24 08:37 Dose: 1 film Divalproex Sodium (Divalproex Sodium Er 500 Mg Tab.Er.24h) 1,000 mg PO BEDTIME FREDO Last Admin: 05/12/24 21:56 Dose: 1,000 mg Hydroxyzine HCl (Hydroxyzine Hcl 25 Mg Tablet) 25 mg PO Q6H PRN PRN Reason: Anxiety Last Admin: 05/10/24 15:50 Dose: 25 mg Magnesium Hydroxide (Milk Of Magnesia 30 Ml Oral.Susp) 30 ml PO DAILY PRN PRN Reason: Constipation Nicotine (Nicotine 21 Mg Patch.Td24) 21 mg TRANSDERMA DAILY [facility] Last Admin: 05/13/24 08:38 Dose: Not Given Nicotine Polacrilex (Nicotine Polacrilex 2 Mg Gum) 4 mg BUCCAL Q2H PRN PRN Reason: Nicotine Cravings Last Admin: 05/09/24 08:41 Dose: 4 mg Olanzapine (Olanzapine 5 Mg Tablet) 5 mg PO TID PRN PRN Reason: agitation Last Admin: 05/11/24 20:20 Dose: 5 mg Risperidone (Risperidone 1 Mg Tablet) 1 mg PO BID [facility] Last Admin: 05/13/24 08:37 Dose: 1 mg Trazodone HCl (Trazodone Hcl 50 Mg Tablet) 50 mg PO BEDTIME MRX1 PRN PRN Reason: Insomnia Last Admin: 05/12/24 21:57 Dose: 50 mg Allergies Allergies Allergy/AdvReac Type Severity Reaction Status Date / Time No Known Allergies Allergy Verified 05/06/24 13:33 [No Known Allergies*] Assessment & Plan Assessment & Plan (1) Unspecified psychosis: Status: Acute Code(s): F29 - Unspecified psychosis not due to a substance or known physiological condition (2) Polysubstance use disorder: Status: Acute Code(s): F19.90 - Other psychoactive substance use, unspecified, uncomplicated Plan 38 yo male, with psychosis and polysubstance use disorder. Plan: Admit, CV, 15 minute checks Collateral contact with family, providers ([facility]) Medications: By history, pt did well with Olanzapine and Valproate. Mother visited today and reports, by history, family members do very well with [place]. Will initiate a low dose and re-start Olanzapine. Diagnostics as needed 05/09: DC Olanzapine Seroquel trial Suboxone re-start Addiction consult 05/12 Discontinue Seroquel, [place] Depakote ER 1000 mg HS Risperdal 1 mg bid Benztropine 0.5 mg bid prn 05/13 continue tx. Reason for continued inpatient stay Substantial Risk for: inability to function Time Spent With Patient Time: Total time managing care of this patient today ____ minutes.
[2024-05-13] MEDS: Acetaminophen 325 MG TABLET 650 MG PO (17:59)
[2024-05-13 20:00] VITALS: BP 153/80; PULSE 107; RESP 18; TEMP 36.3; O2SAT 97
[2024-05-13] MEDS: Divalproex Sodium ER 500 MG TAB.ER.24H 1000 MG PO (20:58)
[2024-05-13] MEDS: traZODone HCL 50 MG TABLET PO (20:58)
[2024-05-14 08:00] VITALS: BP 122/74; PULSE 104; TEMP 36.2; O2SAT 98
[2024-05-14] MEDS: Nicotine 21 MG PATCH.TD24 TRANSDERMA (08:43)
[2024-05-14] MEDS: risperiDONE 1 MG TABLET PO ×2 (08:43→21:47)
[2024-05-14] MEDS: Buprenorphine/Naloxone 2/0.5mg FILM 1 FILM SUBLINGUAL (08:44)
--- NOTE | 2024-05-14 11:45 | P.PNPSI_ITS ---
Subjective Subjective Date of Service: 05/14/24 Reason For Visit: Psychosis, polysubstance Use Disorder Interim History: Met with patient; discussed with team; reviewed chart Patient says he is great and that he came in doing good and remained so. Says I do not know why I am here, my mother thought I should come in. He does not want any medication changes. He is otherwise overall a little more friendly. Taking his medications. Mental Status Exam Mental Status Exam Narrative: Pt is alert and oriented; behavior is somewhat guarded, but not uncooperative, a little more friendly; still pacing the halls but not as much; patient is not in distress; dressed in casual attire with adequate hygiene; mood is described as great the affect constricted; eye contact appropriate; Speech is normal rate, volume and prosody and not pressured; saw psychomotor agitation present; thought process is goal directed; Thought content not disclosed;denies any SI/HI. Remains internally preoccupied Patients insight and judgment impaired Diagnostics Vital Signs (24Hr): Vital Signs - 24 hr 05/13/24 20:00 05/14/24 08:00 Temperature 97.4 F 97.1 F Pulse Rate 107 H 104 H Respiratory Rate 18 Blood Pressure 153/80 H 122/74 Pulse Oximetry 97 98 Oxygen Delivery Method Room Air Room Air BMI result Body Mass Index 23.2 Labs 05/06/24 14:00 05/06/24 14:00 Medications Medications Current Medications Acetaminophen (Acetaminophen 325 Mg Tablet) 650 mg PO Q6H PRN PRN Reason: Headache/Pain Mild Scale (1-3) Last Admin: 05/13/24 17:59 Dose: 650 mg Al Hydroxide/Mg Hydroxide (Magnesium Hydrox/Alum Hydrox 30 Ml Oral.Susp) 30 ml PO Q6H PRN PRN Reason: Heartburn/Nausea Last Admin: 05/08/24 09:36 Dose: 30 ml Benztropine Mesylate (Benztropine Mesylate 0.5 Mg Tablet) 0.5 mg PO BID PRN PRN Reason: EPS Buprenorphine/Naloxone (Buprenorphine/Naloxone 2/0.5mg Film) 1 film SUBLINGUAL DAILY [facility]EDO Last Admin: 05/14/24 08:44 Dose: 1 film Divalproex Sodium (Divalproex Sodium Er 500 Mg Tab.Er.24h) 1,000 mg PO BEDTIME FREDO Last Admin: 05/13/24 20:58 Dose: 1,000 mg Hydroxyzine HCl (Hydroxyzine Hcl 25 Mg Tablet) 25 mg PO Q6H PRN PRN Reason: Anxiety Last Admin: 05/10/24 15:50 Dose: 25 mg Ibuprofen (Ibuprofen 600 Mg Tablet) 600 mg PO Q8H PRN PRN Reason: Pain, Mild (Pain Scale 1-6) Magnesium Hydroxide (Milk Of Magnesia 30 Ml Oral.Susp) 30 ml PO DAILY PRN PRN Reason: Constipation Nicotine (Nicotine 21 Mg Patch.Td24) 21 mg TRANSDERMA DAILY [facility] Last Admin: 05/14/24 08:43 Dose: 21 mg Nicotine Polacrilex (Nicotine Polacrilex 2 Mg Gum) 4 mg BUCCAL Q2H PRN PRN Reason: Nicotine Cravings Last Admin: 05/09/24 08:41 Dose: 4 mg Olanzapine (Olanzapine 5 Mg Tablet) 5 mg PO TID PRN PRN Reason: agitation Last Admin: 05/11/24 20:20 Dose: 5 mg Risperidone (Risperidone 1 Mg Tablet) 1 mg PO BID [facility] Last Admin: 05/14/24 08:43 Dose: 1 mg Trazodone HCl (Trazodone Hcl 50 Mg Tablet) 50 mg PO BEDTIME MRX1 PRN PRN Reason: Insomnia Last Admin: 05/13/24 20:58 Dose: 50 mg Allergies Allergies Allergy/AdvReac Type Severity Reaction Status Date / Time No Known Allergies Allergy Verified 05/06/24 13:33 [No Known Allergies*] Assessment & Plan Assessment & Plan (1) Unspecified psychosis: Status: Acute Code(s): F29 - Unspecified psychosis not due to a substance or known physiological condition (2) Polysubstance use disorder: Status: Acute Code(s): F19.90 - Other psychoactive substance use, unspecified, uncomplicated Plan 38 yo male, with psychosis and polysubstance use disorder. Plan: Admit, CV, 15 minute checks Collateral contact with family, providers ([facility]) Medications: By history, pt did well with Olanzapine and Valproate. Mother visited today and reports, by history, family members do very well with [place]. Will initiate a low dose and re-start Olanzapine. Diagnostics as needed 05/09: DC Olanzapine Seroquel trial Suboxone re-start Addiction consult 05/12 Discontinue Seroquel, [place] Depakote ER 1000 mg HS Risperdal 1 mg bid Benztropine 0.5 mg bid prn 05/13 continue tx. 05/14 Patient says he is great and that he came in doing good and remained so. He does not want any medication changes. He is otherwise overall a little more friendly. Taking his medications. Patient educated on: diagnosis and medication risk/benefits Informed Consent: does not understand Reason for continued inpatient stay Substantial Risk for: rapid decompensation Time Spent With Patient Time: Total time managing care of this patient today ____ minutes.
[2024-05-14] MEDS: Acetaminophen 325 MG TABLET 650 MG PO (14:06)
--- NOTE | 2024-05-14 14:07 | PC.NURSE ---
pt requested tylenol for 5/10 generalized pain, re-educated on pain scale.
[2024-05-14] MEDS: hydrOXYzine HCL 25 MG TABLET PO (15:28)
[2024-05-14] MEDS: Ibuprofen 600 MG TABLET PO (15:28)
[2024-05-14] MEDS: traZODone HCL 50 MG TABLET PO (21:47)
[2024-05-14] MEDS: Divalproex Sodium ER 500 MG TAB.ER.24H 1000 MG PO (21:47)
[2024-05-15] MEDS: Acetaminophen 325 MG TABLET 650 MG PO (03:38)
[2024-05-15] MEDS: traZODone HCL 50 MG TABLET PO ×2 (03:38→20:53)
[2024-05-15 07:57] VITALS: BP 130/64; PULSE 105; TEMP 36.9; O2SAT 98
[2024-05-15] MEDS: Buprenorphine/Naloxone 2/0.5mg FILM 1 FILM SUBLINGUAL ×2 (08:30→17:55)
[2024-05-15] MEDS: risperiDONE 1 MG TABLET PO ×2 (09:25→20:53)
[2024-05-15 20:00] VITALS: BP 117/84; PULSE 90; RESP 15; TEMP 36.6; O2SAT 100
[2024-05-15] MEDS: Divalproex Sodium ER 500 MG TAB.ER.24H 1000 MG PO (20:53)
[2024-05-16] MEDS: OLANZapine 5 MG TABLET PO ×2 (00:58→15:43)
[2024-05-16] MEDS: traZODone HCL 50 MG TABLET PO ×2 (00:58→21:59)
[2024-05-16 08:00] VITALS: BP 106/68; PULSE 99; TEMP 35.9; O2SAT 98
[2024-05-16] MEDS: Buprenorphine/Naloxone 2/0.5mg FILM 1 FILM SUBLINGUAL ×2 (08:40→18:55)
[2024-05-16] MEDS: risperiDONE 1 MG TABLET PO (08:40)
--- NOTE | 2024-05-16 11:48 | P.PNPSI_ITS ---
Subjective Subjective Date of Service: 05/15/24 Reason For Visit: Psychosis, polysubstance Use Disorder Interim History: Late entry note for patient seen on 05/15; discussed with team Patient continues to walk up and down the [place] talking to himself. Earlier this morning got angry that could not get Suboxone earlier however this self- resolved. Patient pleasant to proposal writer on approach and says that he is doing well, asks for afternoon dose of Suboxone to help with cravings to which proposal writer agreed. Mental Status Exam Mental Status Exam Narrative: Pt is alert and oriented; behavior mostly keeps to himself; can be friendly, cooperative, sometimes angry; continues to pace and self dialogue; patient is not in distress; dressed in casual attire with adequate hygiene; mood is described as good the affect constricted; eye contact appropriate; Speech is normal rate, volume and prosody and not pressured; some psychomotor agitation present; thought process is goal directed; Thought content not disclosed;denies any SI/HI. Remains internally preoccupied Patients insight and judgment impaired Diagnostics Vital Signs (24Hr): Vital Signs - 24 hr 05/15/24 20:00 05/16/24 08:00 Temperature 97.8 F 96.7 F L Pulse Rate 90 99 Respiratory Rate 15 Blood Pressure 117/84 106/68 Pulse Oximetry 100 98 Oxygen Delivery Method Room Air BMI result Body Mass Index 23.2 Labs 05/06/24 14:00 05/06/24 14:00 Medications Medications Current Medications Acetaminophen (Acetaminophen 325 Mg Tablet) 650 mg PO Q6H PRN PRN Reason: Headache/Pain Mild Scale (1-3) Last Admin: 05/15/24 03:38 Dose: 650 mg Al Hydroxide/Mg Hydroxide (Magnesium Hydrox/Alum Hydrox 30 Ml Oral.Susp) 30 ml PO Q6H PRN PRN Reason: Heartburn/Nausea Last Admin: 05/08/24 09:36 Dose: 30 ml Benztropine Mesylate (Benztropine Mesylate 0.5 Mg Tablet) 0.5 mg PO BID PRN PRN Reason: EPS Buprenorphine/Naloxone (Buprenorphine/Naloxone 2/0.5mg Film) 1 film SUBLINGUAL BID@0900,1800 FREDO Last Admin: 05/16/24 08:40 Dose: 1 film Divalproex Sodium (Divalproex Sodium Er 500 Mg Tab.Er.24h) 1,000 mg PO BEDTIME FREDO Last Admin: 05/15/24 20:53 Dose: 1,000 mg Hydroxyzine HCl (Hydroxyzine Hcl 25 Mg Tablet) 25 mg PO Q6H PRN PRN Reason: Anxiety Last Admin: 05/14/24 15:28 Dose: 25 mg Ibuprofen (Ibuprofen 600 Mg Tablet) 600 mg PO Q8H PRN PRN Reason: Pain, Mild (Pain Scale 1-6) Last Admin: 05/14/24 15:28 Dose: 600 mg Magnesium Hydroxide (Milk Of Magnesia 30 Ml Oral.Susp) 30 ml PO DAILY PRN PRN Reason: Constipation Nicotine (Nicotine 21 Mg Patch.Td24) 21 mg TRANSDERMA DAILY [facility] Last Admin: 05/16/24 09:00 Dose: Not Given Nicotine Polacrilex (Nicotine Polacrilex 2 Mg Gum) 4 mg BUCCAL Q2H PRN PRN Reason: Nicotine Cravings Last Admin: 05/09/24 08:41 Dose: 4 mg Olanzapine (Olanzapine 5 Mg Tablet) 5 mg PO TID PRN PRN Reason: agitation Last Admin: 05/16/24 00:58 Dose: 5 mg Risperidone (Risperidone 1 Mg Tablet) 1 mg PO BID FREDO Last Admin: 05/16/24 08:40 Dose: 1 mg Trazodone HCl (Trazodone Hcl 50 Mg Tablet) 50 mg PO BEDTIME MRX1 PRN PRN Reason: Insomnia Last Admin: 05/16/24 00:58 Dose: 50 mg Allergies Allergies Allergy/AdvReac Type Severity Reaction Status Date / Time No Known Allergies Allergy Verified 05/06/24 13:33 [No Known Allergies*] Assessment & Plan Assessment & Plan (1) Unspecified psychosis: Status: Acute Code(s): F29 - Unspecified psychosis not due to a substance or known physiological condition (2) Polysubstance use disorder: Status: Acute Code(s): F19.90 - Other psychoactive substance use, unspecified, uncomplicated Plan 38 yo male, with psychosis and polysubstance use disorder. Plan: Admit, CV, 15 minute checks Collateral contact with family, providers ([facility]) Medications: By history, pt did well with Olanzapine and Valproate. Mother visited today and reports, by history, family members do very well with [place]. Will initiate a low dose and re-start Olanzapine. Diagnostics as needed 05/09: DC Olanzapine Seroquel trial Suboxone re-start Addiction consult 05/12 Discontinue Seroquel, [place] Depakote ER 1000 mg HS Risperdal 1 mg bid Benztropine 0.5 mg bid prn 05/13 continue tx. 05/14 Patient says he is great and that he came in doing good and remained so. He does not want any medication changes. He is otherwise overall a little more friendly. Taking his medications. 05/15 Patient continues to walk up and down the [place] talking to himself. Earlier this morning got angry that could not get Suboxone earlier however this self- resolved. Patient pleasant to proposal writer on approach and says that he is doing well, asks for afternoon dose of Suboxone to help with cravings to which proposal writer agreed. Patient educated on: diagnosis, medication risk/benefits and substance abuse Informed Consent: understands, does not understand and further education needed Reason for continued inpatient stay Substantial Risk for: rapid decompensation Time Spent With Patient Time: Total time managing care of this patient today ____ minutes.
[2024-05-16] MEDS: Nicotine Polacrilex 2 MG GUM 4 MG BUCCAL (14:11)
[2024-05-16] MEDS: hydrOXYzine HCL 25 MG TABLET PO (15:43)
--- NOTE | 2024-05-16 16:47 | P.PNPSI_ITS ---
Subjective Subjective Date of Service: 05/16/24 Reason For Visit: Psychosis, polysubstance Use Disorder Subjective Notes: Conditional Voluntary Healthcare Proxy: No Guardianship: No Medical Problems Affecting Mental Status: No Interim History: Mood dysregulation persists as noted over the weekend. Does not believe he needs medication. Blames mother for current in pt admission. Labile, angry, self-dialoguing, abrupt, dismissive. Today, unable to meet for longer than 10 minutes due to anger, unable to answer questions about how he is doing, unable to have a discussion about his regime, just let me go home. Pacing, listenting to music at times, self-dialoguing at times, interactive with peers. Medication Compliance: Yes Side effects from medications: No Attending Groups: No Review of Systems Acute medical concerns: No Review of Systems Review of Systems Yes all other systems are reviewed and are negative and Unobtainable due to mental status Mental Status Exam Mental Status Exam Patient Appearance: Appropriate Patient Orientation: Person, Place, Time and Situation Level of Consciousness: Alert Patient Behavior: Guarded, Suspicious, Avoidant, Distractible and Poor Eye Contact Mood Description: Labile and Angry Affect Description: Labile and Angry Patient Cognition Impaired: No Ability to Follow Directions: Fair Speech Pattern: Spontaneous Speech Memory Description: Intact Hallucinations: Auditory Delusions: Being Controlled, Paranoid Ideation and Present Perceptual Disturbances: Derealization Thought Process: Distracted Thought Content: positive for Circumstantial, positive for Perseveration, positive for Preoccupation and positive for Thought Blocking Depressive Symptoms: Increased Irritability Judgement: Poor Diagnostics Vital Signs (24Hr): Vital Signs - 24 hr 05/15/24 20:00 05/16/24 08:00 Temperature 97.8 F 96.7 F L Pulse Rate 90 99 Respiratory Rate 15 Blood Pressure 117/84 106/68 Pulse Oximetry 100 98 Oxygen Delivery Method Room Air BMI result Body Mass Index 23.2 Labs 05/06/24 14:00 05/06/24 14:00 Medications Medications Current Medications Acetaminophen (Acetaminophen 325 Mg Tablet) 650 mg PO Q6H PRN PRN Reason: Headache/Pain Mild Scale (1-3) Last Admin: 05/15/24 03:38 Dose: 650 mg Al Hydroxide/Mg Hydroxide (Magnesium Hydrox/Alum Hydrox 30 Ml Oral.Susp) 30 ml PO Q6H PRN PRN Reason: Heartburn/Nausea Last Admin: 05/08/24 09:36 Dose: 30 ml Benztropine Mesylate (Benztropine Mesylate 0.5 Mg Tablet) 0.5 mg PO BID PRN PRN Reason: EPS Buprenorphine/Naloxone (Buprenorphine/Naloxone 2/0.5mg Film) 1 film SUBLINGUAL BID@0900,1800 [facility] Last Admin: 05/16/24 08:40 Dose: 1 film Divalproex Sodium (Divalproex Sodium Er 500 Mg Tab.Er.24h) 1,000 mg PO BEDTIME [facility] Last Admin: 05/15/24 20:53 Dose: 1,000 mg Hydroxyzine HCl (Hydroxyzine Hcl 25 Mg Tablet) 25 mg PO Q6H PRN PRN Reason: Anxiety Last Admin: 05/16/24 15:43 Dose: 25 mg Ibuprofen (Ibuprofen 600 Mg Tablet) 600 mg PO Q8H PRN PRN Reason: Pain, Mild (Pain Scale 1-6) Last Admin: 05/14/24 15:28 Dose: 600 mg Magnesium Hydroxide (Milk Of Magnesia 30 Ml Oral.Susp) 30 ml PO DAILY PRN PRN Reason: Constipation Nicotine (Nicotine 21 Mg Patch.Td24) 21 mg TRANSDERMA DAILY [facility] Last Admin: 05/16/24 09:00 Dose: Not Given Nicotine Polacrilex (Nicotine Polacrilex 2 Mg Gum) 4 mg BUCCAL Q2H PRN PRN Reason: Nicotine Cravings Last Admin: 05/16/24 14:11 Dose: 4 mg Olanzapine (Olanzapine 5 Mg Tablet) 5 mg PO TID PRN PRN Reason: agitation Last Admin: 05/16/24 15:43 Dose: 5 mg Risperidone (Risperidone 1 Mg Tablet) 1 mg PO BID [facility] Last Admin: 05/16/24 08:40 Dose: 1 mg Trazodone HCl (Trazodone Hcl 50 Mg Tablet) 50 mg PO BEDTIME MRX1 PRN PRN Reason: Insomnia Last Admin: 05/16/24 00:58 Dose: 50 mg Allergies Allergies Allergy/AdvReac Type Severity Reaction Status Date / Time No Known Allergies Allergy Verified 05/06/24 13:33 [No Known Allergies*] Assessment & Plan Assessment & Plan (1) Unspecified psychosis: Status: Acute Code(s): F29 - Unspecified psychosis not due to a substance or known physiological condition (2) Polysubstance use disorder: Status: Acute Code(s): F19.90 - Other psychoactive substance use, unspecified, uncomplicated Plan 38 yo male, with psychosis and polysubstance use disorder. Plan: Admit, CV, 15 minute checks Collateral contact with family, providers ([facility]) Medications: By history, pt did well with Olanzapine and Valproate. Mother visited today and reports, by history, family members do very well with [place]. Will initiate a low dose and re-start Olanzapine. Diagnostics as needed 05/09: DC Olanzapine Seroquel trial Suboxone re-start Addiction consult 05/12 Discontinue Seroquel, [place] Depakote ER 1000 mg HS Risperdal 1 mg bid Benztropine 0.5 mg bid prn 05/13 continue tx. 05/14 Patient says he is great and that he came in doing good and remained so. He does not want any medication changes. He is otherwise overall a little more friendly. Taking his medications. 05/15 Patient continues to walk up and down the [place] talking to himself. Earlier this morning got angry that could not get Suboxone earlier however this self- resolved. Patient pleasant to telegraphic typewriter operator chief on approach and says that he is doing well, asks for afternoon dose of Suboxone to help with cravings to which telegraphic typewriter operator chief agreed. 05/16: Increase Depakote to 1500 mg HS Increase Risperdal to 2 mg bid Reason for continued inpatient stay Substantial Risk for: harm to self, harm to others, inability to function and rapid decompensation Time Spent With Patient Time: Total time managing care of this patient today ____ minutes.
[2024-05-16] MEDS: risperiDONE 2 MG TABLET PO (21:59)
[2024-05-16] MEDS: Divalproex Sodium ER 500 MG TAB.ER.24H 1500 MG PO (21:59)
[2024-05-17 08:45] VITALS: BP 119/81; PULSE 92; RESP 18; TEMP 35.9; O2SAT 100
[2024-05-17] MEDS: Buprenorphine/Naloxone 2/0.5mg FILM 1 FILM SUBLINGUAL ×2 (08:49→18:46)
[2024-05-17] MEDS: Nicotine 21 MG PATCH.TD24 TRANSDERMA (08:49)
[2024-05-17] MEDS: risperiDONE 2 MG TABLET PO (08:49)
[2024-05-17] MEDS: Benztropine Mesylate 0.5 MG TABLET PO (09:51)
[2024-05-17] MEDS: OLANZapine 5 MG TABLET PO ×2 (09:51→22:20)
[2024-05-17] MEDS: hydrOXYzine HCL 25 MG TABLET PO ×2 (14:01→22:20)
--- NOTE | 2024-05-17 14:47 | P.PNPSI_ITS ---
Subjective Subjective Date of Service: 05/17/24 Reason For Visit: Psychosis, polysubstance Use Disorder Subjective Notes: Conditional Voluntary Healthcare Proxy: No Guardianship: No Medical Problems Affecting Mental Status: No Interim History: Mother visited. Pt able to remain in family meeting for about 5 minutes when he became angry and verbally abusive to mother, giving her the finger several times, then leaving. Medications reviewed with mother. She approves of increases. Discussed regime of last admission which was effective however pt currently refusing Olanzapine. Will increase Depakote and Risperdal Pt asks for Suboxone increase. Will request addiction medicine to see. Benztropine increased Medication Compliance: Yes Side effects from medications: Yes (?EPS vs agitation) Attending Groups: No Review of Systems Acute medical concerns: No Medical Review of Systems: unchanged Review of Systems Review of Systems Yes all other systems are reviewed and are negative Mental Status Exam Mental Status Exam Patient Appearance: Appropriate Patient Orientation: Person, Place, Time and Situation Level of Consciousness: Alert Patient Behavior: Guarded, Suspicious, Avoidant, Distractible and Poor Eye Contact Mood Description: Labile and Angry Affect Description: Labile and Angry Patient Cognition Impaired: No Ability to Follow Directions: Fair Speech Pattern: Spontaneous Speech Memory Description: Intact Hallucinations: Auditory Delusions: Being Controlled, Paranoid Ideation and Present Perceptual Disturbances: Derealization Thought Process: Distracted Thought Content: positive for Circumstantial, positive for Perseveration, positive for Preoccupation and positive for Thought Blocking Depressive Symptoms: Increased Irritability Judgement: Poor Diagnostics Vital Signs (24Hr): Vital Signs - 24 hr 05/17/24 08:45 Temperature 96.6 F L Pulse Rate 92 Respiratory Rate 18 Blood Pressure 119/81 Pulse Oximetry 100 Oxygen Delivery Method Room Air BMI result Body Mass Index 23.2 Labs 05/06/24 14:00 05/06/24 14:00 Medications Medications Current Medications Acetaminophen (Acetaminophen 325 Mg Tablet) 650 mg PO Q6H PRN PRN Reason: Headache/Pain Mild Scale (1-3) Last Admin: 05/15/24 03:38 Dose: 650 mg Al Hydroxide/Mg Hydroxide (Magnesium Hydrox/Alum Hydrox 30 Ml Oral.Susp) 30 ml PO Q6H PRN PRN Reason: Heartburn/Nausea Last Admin: 05/08/24 09:36 Dose: 30 ml Benztropine Mesylate (Benztropine Mesylate 0.5 Mg Tablet) 0.5 mg PO BID PRN PRN Reason: EPS Last Admin: 05/17/24 09:51 Dose: 0.5 mg Buprenorphine/Naloxone (Buprenorphine/Naloxone 2/0.5mg Film) 1 film SUBLINGUAL BID@0900,1800 [facility] Last Admin: 05/17/24 08:49 Dose: 1 film Divalproex Sodium (Divalproex Sodium Er 500 Mg Tab.Er.24h) 1,500 mg PO BEDTIME [facility] Last Admin: 05/16/24 21:59 Dose: 1,500 mg Hydroxyzine HCl (Hydroxyzine Hcl 25 Mg Tablet) 25 mg PO Q6H PRN PRN Reason: Anxiety Last Admin: 05/17/24 14:01 Dose: 25 mg Ibuprofen (Ibuprofen 600 Mg Tablet) 600 mg PO Q8H PRN PRN Reason: Pain, Mild (Pain Scale 1-6) Last Admin: 05/14/24 15:28 Dose: 600 mg Magnesium Hydroxide (Milk Of Magnesia 30 Ml Oral.Susp) 30 ml PO DAILY PRN PRN Reason: Constipation Nicotine (Nicotine 21 Mg Patch.Td24) 21 mg TRANSDERMA DAILY [facility] Last Admin: 05/17/24 08:49 Dose: 21 mg Nicotine Polacrilex (Nicotine Polacrilex 2 Mg Gum) 4 mg BUCCAL Q2H PRN PRN Reason: Nicotine Cravings Last Admin: 05/16/24 14:11 Dose: 4 mg Olanzapine (Olanzapine 5 Mg Tablet) 5 mg PO TID PRN PRN Reason: agitation Last Admin: 05/17/24 09:51 Dose: 5 mg Risperidone (Risperidone 2 Mg Tablet) 2 mg PO BID [facility] Last Admin: 05/17/24 08:49 Dose: 2 mg Trazodone HCl (Trazodone Hcl 50 Mg Tablet) 50 mg PO BEDTIME MRX1 PRN PRN Reason: Insomnia Last Admin: 05/16/24 21:59 Dose: 50 mg Allergies Allergies Allergy/AdvReac Type Severity Reaction Status Date / Time No Known Allergies Allergy Verified 05/06/24 13:33 [No Known Allergies*] Assessment & Plan Assessment & Plan (1) Unspecified psychosis: Status: Acute Code(s): F29 - Unspecified psychosis not due to a substance or known physiological condition (2) Polysubstance use disorder: Status: Acute Code(s): F19.90 - Other psychoactive substance use, unspecified, uncomplicated Plan 38 yo male, with psychosis and polysubstance use disorder. Plan: Admit, CV, 15 minute checks Collateral contact with family, providers ([facility]) Medications: By history, pt did well with Olanzapine and Valproate. Mother visited today and reports, by history, family members do very well with [place]. Will initiate a low dose and re-start Olanzapine. Diagnostics as needed 05/09: DC Olanzapine Seroquel trial Suboxone re-start Addiction consult 05/12 Discontinue Seroquel, [place] Depakote ER 1000 mg HS Risperdal 1 mg bid Benztropine 0.5 mg bid prn 05/13 continue tx. 05/14 Patient says he is great and that he came in doing good and remained so. He does not want any medication changes. He is otherwise overall a little more friendly. Taking his medications. 05/15 Patient continues to walk up and down the [place] talking to himself. Earlier this morning got angry that could not get Suboxone earlier however this self- resolved. Patient pleasant to program writer on approach and says that he is doing well, asks for afternoon dose of Suboxone to help with cravings to which program writer agreed. 05/16: Increase Depakote to 1500 mg HS Increase Risperdal to 2 mg bid 05/17 Addiction Medicine consult to increase suboxone Increase Depakote ER to 1000 mg bid Increase Risperdal to 3 mg bid Benztropine 1 mg bid Reason for continued inpatient stay Substantial Risk for: rapid decompensation Time Spent With Patient Time: Total time managing care of this patient today ____ minutes.
[2024-05-17 20:00] VITALS: RESP 18
[2024-05-17] MEDS: risperiDONE 3 MG TABLET PO (22:20)
[2024-05-17] MEDS: traZODone HCL 50 MG TABLET PO (22:20)
[2024-05-17] MEDS: Benztropine Mesylate 1 MG TABLET PO (22:20)
[2024-05-17] MEDS: Divalproex Sodium ER 500 MG TAB.ER.24H 1000 MG PO (22:21)
[2024-05-18 08:31] VITALS: BP 110/57; PULSE 74; RESP 16; TEMP 36.4; O2SAT 99
[2024-05-18] MEDS: Benztropine Mesylate 1 MG TABLET PO ×2 (08:34→20:17)
[2024-05-18] MEDS: Divalproex Sodium ER 500 MG TAB.ER.24H 1000 MG PO ×2 (08:34→20:17)
[2024-05-18] MEDS: Buprenorphine/Naloxone 2/0.5mg FILM 1 FILM SUBLINGUAL (08:35)
--- NOTE | 2024-05-18 12:06 | P.PNADD_ITS ---
Subjective Subjective Date of Service: 05/18/24 Reason For Visit: Psychosis, polysubstance Use Disorder Interim History: Addiction follow up requested as patient now requesting suboxone dose be increased Currently receiving suboxone 2mg BID Has been psychiatrically admitted since 05/08. Seen by insulation supervisor on 05/10 at which point he reported to her that he had been tapering dose at home and was taking only small pieces of films to address cravings. He declined restarting suboxone. Seen in his room, he was laying in bed, but awake. Somewhat challenging to illict information as he answered questions in a circular fashion. He ultimately stated he did wish to have suboxone dose back to previous home dose. Informed patient that dose would be increased over some time as he has been on much decreased for some time. He did not appear to be experiencing any withdrawal sx, and when asked if he was feeling sick he stated, no, I am just trying to pass the time Review of Systems Constitutional: Reports as per HPI Mental Status Exam Mental Status Exam Level of Consciousness: Awake and Alert Patient Behavior: Cooperative Mood Description: Calm Affect Description: Calm Diagnostics Vital Signs (24Hr): Vital Signs - 24 hr 05/17/24 20:00 05/18/24 08:31 Temperature 97.6 F Pulse Rate 74 Respiratory Rate 18 16 Blood Pressure 110/57 L Pulse Oximetry 99 Oxygen Delivery Method Room Air BMI result Body Mass Index 23.2 Labs 05/06/24 14:00 05/06/24 14:00 Medications Medications Current Medications Acetaminophen (Acetaminophen 325 Mg Tablet) 650 mg PO Q6H PRN PRN Reason: Headache/Pain Mild Scale (1-3) Last Admin: 05/15/24 03:38 Dose: 650 mg Al Hydroxide/Mg Hydroxide (Magnesium Hydrox/Alum Hydrox 30 Ml Oral.Susp) 30 ml PO Q6H PRN PRN Reason: Heartburn/Nausea Last Admin: 05/08/24 09:36 Dose: 30 ml Benztropine Mesylate (Benztropine Mesylate 1 Mg Tablet) 1 mg PO BID [facility] Last Admin: 05/18/24 08:34 Dose: 1 mg Divalproex Sodium (Divalproex Sodium Er 500 Mg Tab.Er.24h) 1,000 mg PO BID [facility] Last Admin: 05/18/24 08:34 Dose: 1,000 mg Hydroxyzine HCl (Hydroxyzine Hcl 25 Mg Tablet) 25 mg PO Q6H PRN PRN Reason: Anxiety Last Admin: 05/17/24 22:20 Dose: 25 mg Ibuprofen (Ibuprofen 600 Mg Tablet) 600 mg PO Q8H PRN PRN Reason: Pain, Mild (Pain Scale 1-6) Last Admin: 05/14/24 15:28 Dose: 600 mg Magnesium Hydroxide (Milk Of Magnesia 30 Ml Oral.Susp) 30 ml PO DAILY PRN PRN Reason: Constipation Nicotine (Nicotine 21 Mg Patch.Td24) 21 mg TRANSDERMA DAILY [facility] Last Admin: 05/18/24 08:39 Dose: Not Given Nicotine Polacrilex (Nicotine Polacrilex 2 Mg Gum) 4 mg BUCCAL Q2H PRN PRN Reason: Nicotine Cravings Last Admin: 05/16/24 14:11 Dose: 4 mg Olanzapine (Olanzapine 5 Mg Tablet) 5 mg PO TID PRN PRN Reason: agitation Last Admin: 05/17/24 22:20 Dose: 5 mg Risperidone (Risperidone 3 Mg Tablet) 3 mg PO BID [facility] Last Admin: 05/18/24 08:39 Dose: Not Given Trazodone HCl (Trazodone Hcl 50 Mg Tablet) 50 mg PO BEDTIME MRX1 PRN PRN Reason: Insomnia Last Admin: 05/17/24 22:20 Dose: 50 mg Allergies Allergies Allergy/AdvReac Type Severity Reaction Status Date / Time No Known Allergies Allergy Verified 05/06/24 13:33 [No Known Allergies*] Assessment & Plan Assessment & Plan (1) Opioid use disorder: Status: Acute Code(s): F11.90 - Opioid use, unspecified, uncomplicated Assessment and Plan: * increase dose to 4mg BID * if no sedation noted over 2 days then increase to 8mg BID Total time managing care of this patient today _20___ minutes.
--- NOTE | 2024-05-18 12:33 | HO.PSYCHPN ---
Subjective Subjective Date of Service: 05/18/24 Reason For Visit: Psychosis, polysubstance Use Disorder Subjective Notes: Conditional Voluntary Healthcare Proxy: No Guardianship: No Medical Problems Affecting Mental Status: No Interim History: Intermittent refusal of medications Denies current issues or concerns. Walking on the unit, using headphones, appears internally preoccupied Declines change to Olanzapine, which by history has been helpful for mood. Adjusting Suboxone with addiction team. Medication Compliance: Intermittent Side effects from medications: No Attending Groups: No Review of Systems Acute medical concerns: No Medical Review of Systems: unchanged Review of Systems Review of Systems Yes all other systems are reviewed and are negative Mental Status Exam Mental Status Exam Patient Appearance: Appropriate Patient Orientation: Person, Place, Time and Situation Level of Consciousness: Alert Patient Behavior: Guarded, Avoidant, Distractible and Poor Eye Contact Mood Description: Labile Affect Description: Labile Patient Cognition Impaired: No Ability to Follow Directions: Fair Speech Pattern: Spontaneous Speech Memory Description: Intact Hallucinations: Auditory Delusions: Present Perceptual Disturbances: Derealization Thought Content: positive for Circumstantial Depressive Symptoms: Increased Irritability (at times) Judgement: Fair Diagnostics Vital Signs (24Hr): Vital Signs - 24 hr 05/17/24 20:00 05/18/24 08:31 Temperature 97.6 F Pulse Rate 74 Respiratory Rate 18 16 Blood Pressure 110/57 L Pulse Oximetry 99 Oxygen Delivery Method Room Air BMI result Body Mass Index 23.2 Labs 05/06/24 14:00 05/06/24 14:00 Medications Medications Current Medications Acetaminophen (Acetaminophen 325 Mg Tablet) 650 mg PO Q6H PRN PRN Reason: Headache/Pain Mild Scale (1-3) Last Admin: 05/15/24 03:38 Dose: 650 mg Al Hydroxide/Mg Hydroxide (Magnesium Hydrox/Alum Hydrox 30 Ml Oral.Susp) 30 ml PO Q6H PRN PRN Reason: Heartburn/Nausea Last Admin: 05/08/24 09:36 Dose: 30 ml Benztropine Mesylate (Benztropine Mesylate 1 Mg Tablet) 1 mg PO BID [facility] Last Admin: 05/18/24 08:34 Dose: 1 mg Buprenorphine/Naloxone (Buprenorphine/Naloxone 4/1 Mg Film) 1 film SUBLINGUAL BID@0900,1700 [facility] Divalproex Sodium (Divalproex Sodium Er 500 Mg Tab.Er.24h) 1,000 mg PO BID [facility] Last Admin: 05/18/24 08:34 Dose: 1,000 mg Hydroxyzine HCl (Hydroxyzine Hcl 25 Mg Tablet) 25 mg PO Q6H PRN PRN Reason: Anxiety Last Admin: 05/17/24 22:20 Dose: 25 mg Ibuprofen (Ibuprofen 600 Mg Tablet) 600 mg PO Q8H PRN PRN Reason: Pain, Mild (Pain Scale 1-6) Last Admin: 05/14/24 15:28 Dose: 600 mg Magnesium Hydroxide (Milk Of Magnesia 30 Ml Oral.Susp) 30 ml PO DAILY PRN PRN Reason: Constipation Nicotine (Nicotine 21 Mg Patch.Td24) 21 mg TRANSDERMA DAILY [facility] Last Admin: 05/18/24 08:39 Dose: Not Given Nicotine Polacrilex (Nicotine Polacrilex 2 Mg Gum) 4 mg BUCCAL Q2H PRN PRN Reason: Nicotine Cravings Last Admin: 05/16/24 14:11 Dose: 4 mg Olanzapine (Olanzapine 5 Mg Tablet) 5 mg PO TID PRN PRN Reason: agitation Last Admin: 05/17/24 22:20 Dose: 5 mg Risperidone (Risperidone 3 Mg Tablet) 3 mg PO BID [facility] Last Admin: 05/18/24 08:39 Dose: Not Given Trazodone HCl (Trazodone Hcl 50 Mg Tablet) 50 mg PO BEDTIME MRX1 PRN PRN Reason: Insomnia Last Admin: 05/17/24 22:20 Dose: 50 mg Allergies Allergies Allergy/AdvReac Type Severity Reaction Status Date / Time No Known Allergies Allergy Verified 05/06/24 13:33 [No Known Allergies*] Assessment & Plan Assessment & Plan (1) Opioid use disorder: Status: Acute Code(s): F11.90 - Opioid use, unspecified, uncomplicated Assessment and Plan: increase dose to 4mg BID if no sedation noted over 2 days then increase to 8mg BID (2) Unspecified psychosis: Status: Acute Code(s): F29 - Unspecified psychosis not due to a substance or known physiological condition (3) Polysubstance use disorder: Status: Acute Code(s): F19.90 - Other psychoactive substance use, unspecified, uncomplicated Plan 05/18: Continue current tx. Continue to encourage compliance with regime. Reason for continued inpatient stay Substantial Risk for: rapid decompensation Time Spent With Patient Time: Total time managing care of this patient today ____ minutes.
[2024-05-18] MEDS: Buprenorphine/Naloxone 4/1 mg FILM 1 FILM SUBLINGUAL (16:45)
[2024-05-18 20:00] VITALS: RESP 18
[2024-05-18] MEDS: risperiDONE 3 MG TABLET PO (20:17)
[2024-05-18] MEDS: traZODone HCL 50 MG TABLET PO (20:18)
[2024-05-18] MEDS: OLANZapine 5 MG TABLET PO (21:02)
[2024-05-19 07:00] VITALS: BMI 24.1
[2024-05-19 08:00] VITALS: RESP 18
[2024-05-19] MEDS: Buprenorphine/Naloxone 4/1 mg FILM 1 FILM SUBLINGUAL ×2 (08:57→17:30)
--- NOTE | 2024-05-19 11:39 | HO.PSYCHPN ---
Subjective Subjective Date of Service: 05/19/24 Reason For Visit: Psychosis, polysubstance Use Disorder Subjective Notes: Conditional Voluntary Healthcare Proxy: No Guardianship: No Medical Problems Affecting Mental Status: No Interim History: Pt continues to refuse psychotropic medications. No behavioral concerns on the unit. There is a conflict in that mother wants him to take meds, return home. She does not want consideration of Section 7 or trial of UNGER. She questions why low dose Olanzapine/Valproate is not working as it did during the last admission. Pt believes he does not need medications. He expresses irritability and anger with mother when she visits over this issue and is more consistent in refusal of agents. Refuses to retrial olanzapine, refusing valproate/risperdal. Declines other trials. Medication Compliance: No Side effects from medications: No Attending Groups: No Review of Systems Acute medical concerns: No Medical Review of Systems: unchanged Review of Systems Review of Systems Yes all other systems are reviewed and are negative Mental Status Exam Mental Status Exam Patient Appearance: Appropriate Patient Orientation: Person, Place, Time and Situation Level of Consciousness: Alert Patient Behavior: Guarded, Avoidant, Distractible and Poor Eye Contact Mood Description: Labile Affect Description: Labile Patient Cognition Impaired: No Ability to Follow Directions: Fair Speech Pattern: Spontaneous Speech Memory Description: Intact Hallucinations: Auditory Delusions: Present Perceptual Disturbances: Derealization Thought Content: positive for Circumstantial Depressive Symptoms: Increased Irritability (at times) Judgement: Fair Diagnostics Vital Signs (24Hr): Vital Signs - 24 hr 05/18/24 20:00 05/19/24 08:00 Respiratory Rate 18 18 Oxygen Delivery Method Room Air BMI result Body Mass Index 24.1 Labs 05/06/24 14:00 05/06/24 14:00 Medications Medications Current Medications Acetaminophen (Acetaminophen 325 Mg Tablet) 650 mg PO Q6H PRN PRN Reason: Headache/Pain Mild Scale (1-3) Last Admin: 05/15/24 03:38 Dose: 650 mg Al Hydroxide/Mg Hydroxide (Magnesium Hydrox/Alum Hydrox 30 Ml Oral.Susp) 30 ml PO Q6H PRN PRN Reason: Heartburn/Nausea Last Admin: 05/08/24 09:36 Dose: 30 ml Benztropine Mesylate (Benztropine Mesylate 1 Mg Tablet) 1 mg PO BID FREDO Last Admin: 05/19/24 10:56 Dose: Not Given Buprenorphine/Naloxone (Buprenorphine/Naloxone 4/1 Mg Film) 1 film SUBLINGUAL BID@0900,1700 [facility] Last Admin: 05/19/24 08:57 Dose: 1 film Divalproex Sodium (Divalproex Sodium Er 500 Mg Tab.Er.24h) 1,000 mg PO BID [facility] Last Admin: 05/19/24 10:56 Dose: Not Given Hydroxyzine HCl (Hydroxyzine Hcl 25 Mg Tablet) 25 mg PO Q6H PRN PRN Reason: Anxiety Last Admin: 05/17/24 22:20 Dose: 25 mg Ibuprofen (Ibuprofen 600 Mg Tablet) 600 mg PO Q8H PRN PRN Reason: Pain, Mild (Pain Scale 1-6) Last Admin: 05/14/24 15:28 Dose: 600 mg Magnesium Hydroxide (Milk Of Magnesia 30 Ml Oral.Susp) 30 ml PO DAILY PRN PRN Reason: Constipation Nicotine (Nicotine 21 Mg Patch.Td24) 21 mg TRANSDERMA DAILY [facility] Last Admin: 05/19/24 10:46 Dose: Not Given Nicotine Polacrilex (Nicotine Polacrilex 2 Mg Gum) 4 mg BUCCAL Q2H PRN PRN Reason: Nicotine Cravings Last Admin: 05/16/24 14:11 Dose: 4 mg Olanzapine (Olanzapine 5 Mg Tablet) 5 mg PO TID PRN PRN Reason: agitation Last Admin: 05/18/24 21:02 Dose: 5 mg Risperidone (Risperidone 3 Mg Tablet) 3 mg PO BID [facility] Last Admin: 05/19/24 10:46 Dose: Not Given Trazodone HCl (Trazodone Hcl 50 Mg Tablet) 50 mg PO BEDTIME MRX1 PRN PRN Reason: Insomnia Last Admin: 05/18/24 20:18 Dose: 50 mg Allergies Allergies Allergy/AdvReac Type Severity Reaction Status Date / Time No Known Allergies Allergy Verified 05/06/24 13:33 [No Known Allergies*] Assessment & Plan Assessment & Plan (1) Opioid use disorder: Status: Acute Code(s): F11.90 - Opioid use, unspecified, uncomplicated Assessment and Plan: increase dose to 4mg BID if no sedation noted over 2 days then increase to 8mg BID (2) Polysubstance use disorder: Status: Acute Code(s): F19.90 - Other psychoactive substance use, unspecified, uncomplicated (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 He is taking Suboxone, declining other treatments. He will call his mother to come in on 05/20 to discuss discharge and his current refusals. Reason for continued inpatient stay Substantial Risk for: rapid decompensation Time Spent With Patient Time: Total time managing care of this patient today ____ minutes.
[2024-05-19] MEDS: traZODone HCL 50 MG TABLET PO (21:29)
[2024-05-20 08:00] VITALS: BP 128/72; PULSE 83; RESP 14; TEMP 35.9; O2SAT 99
[2024-05-20] MEDS: Buprenorphine/Naloxone 4/1 mg FILM 1 FILM SUBLINGUAL ×2 (09:17→19:06)
--- NOTE | 2024-05-20 11:59 | P.PNPSI_ITS ---
Subjective Subjective Date of Service: 05/20/24 Reason For Visit: Psychosis, polysubstance Use Disorder Subjective Notes: Conditional Voluntary Healthcare Proxy: No Guardianship: No Medical Problems Affecting Mental Status: No Interim History: Denies SI/HI/AH/VH Walking in the milieu with headphones Appears to have internal preoccupation sx. Mother was supposed to visit to discuss discharge. As of this writing she has not come in. Pt has no interest in participating in treatment. He has had no behavioral issues on the unit. Mother has asked that we not pursue Section 7 or offer UNGER Pt accepting Suboxone, not accepting psychotropic medications. Will plan discharge for 05/21 as he is declining treatment. Medication Compliance: No Side effects from medications: No Attending Groups: No Review of Systems Acute medical concerns: No Medical Review of Systems: unchanged Review of Systems Review of Systems Yes all other systems are reviewed and are negative Mental Status Exam Mental Status Exam Patient Appearance: Appropriate Patient Orientation: Person, Place, Time and Situation Level of Consciousness: Alert Patient Behavior: Guarded, Avoidant, Distractible and Poor Eye Contact Mood Description: Labile Affect Description: Labile Patient Cognition Impaired: No Ability to Follow Directions: Fair Speech Pattern: Spontaneous Speech Memory Description: Intact Hallucinations: Auditory Delusions: Present Perceptual Disturbances: Derealization Thought Content: positive for Circumstantial Depressive Symptoms: Increased Irritability (at times) Judgement: Fair Diagnostics Vital Signs (24Hr): BMI result Body Mass Index 24.1 Labs 05/06/24 14:00 05/06/24 14:00 Medications Medications Current Medications Acetaminophen (Acetaminophen 325 Mg Tablet) 650 mg PO Q6H PRN PRN Reason: Headache/Pain Mild Scale (1-3) Last Admin: 05/15/24 03:38 Dose: 650 mg Al Hydroxide/Mg Hydroxide (Magnesium Hydrox/Alum Hydrox 30 Ml Oral.Susp) 30 ml PO Q6H PRN PRN Reason: Heartburn/Nausea Last Admin: 05/08/24 09:36 Dose: 30 ml Benztropine Mesylate (Benztropine Mesylate 1 Mg Tablet) 1 mg PO BID [facility] Last Admin: 05/20/24 09:17 Dose: Not Given Buprenorphine/Naloxone (Buprenorphine/Naloxone 4/1 Mg Film) 1 film SUBLINGUAL BID@0900,1700 [facility] Last Admin: 05/20/24 09:17 Dose: 1 film Divalproex Sodium (Divalproex Sodium Er 500 Mg Tab.Er.24h) 1,000 mg PO BID [facility] Last Admin: 05/20/24 09:18 Dose: Not Given Hydroxyzine HCl (Hydroxyzine Hcl 25 Mg Tablet) 25 mg PO Q6H PRN PRN Reason: Anxiety Last Admin: 05/17/24 22:20 Dose: 25 mg Ibuprofen (Ibuprofen 600 Mg Tablet) 600 mg PO Q8H PRN PRN Reason: Pain, Mild (Pain Scale 1-6) Last Admin: 05/14/24 15:28 Dose: 600 mg Magnesium Hydroxide (Milk Of Magnesia 30 Ml Oral.Susp) 30 ml PO DAILY PRN PRN Reason: Constipation Nicotine (Nicotine 21 Mg Patch.Td24) 21 mg TRANSDERMA DAILY [facility] Last Admin: 05/20/24 09:18 Dose: Not Given Nicotine Polacrilex (Nicotine Polacrilex 2 Mg Gum) 4 mg BUCCAL Q2H PRN PRN Reason: Nicotine Cravings Last Admin: 05/16/24 14:11 Dose: 4 mg Olanzapine (Olanzapine 5 Mg Tablet) 5 mg PO TID PRN PRN Reason: agitation Last Admin: 05/18/24 21:02 Dose: 5 mg Risperidone (Risperidone 3 Mg Tablet) 3 mg PO BID [facility] Last Admin: 05/20/24 09:18 Dose: Not Given Trazodone HCl (Trazodone Hcl 50 Mg Tablet) 50 mg PO BEDTIME MRX1 PRN PRN Reason: Insomnia Last Admin: 05/19/24 21:29 Dose: 50 mg Allergies Allergies Allergy/AdvReac Type Severity Reaction Status Date / Time No Known Allergies Allergy Verified 05/06/24 13:33 [No Known Allergies*] Assessment & Plan Assessment & Plan (1) Opioid use disorder: Status: Acute Code(s): F11.90 - Opioid use, unspecified, uncomplicated Assessment and Plan: * increase dose to 4mg BID * if no sedation noted over 2 days then increase to 8mg BID (2) Unspecified psychosis: Status: Acute Code(s): F29 - Unspecified psychosis not due to a substance or known physiological condition (3) Polysubstance use disorder: Status: Acute Code(s): F19.90 - Other psychoactive substance use, unspecified, uncomplicated Plan 05/18: Continue current tx. Continue to encourage compliance with regime. 05/20: Discharge 05/21. Declines interventions other than Suboxone Declines referrals. Reason for continued inpatient stay Substantial Risk for: stable for discharge Time Spent With Patient Time: Total time managing care of this patient today ____ minutes.
--- NOTE | 2024-05-20 13:46 | PM.EVENT ---
Event Note Date of Service: 05/20/24 Event Note: Addiction follow up by management professionals Suboxone dose increased to 4mg BID earlier this week with plan to increase again to 8mg BID When seen by RN today patient reporting that he does not wish to increase dose any further Also reporting that he will be following up with [facility] for continuation of MAT Time Spent With Patient Time: Total time managing care of this patient today ____ minutes.
[2024-05-20 20:00] VITALS: BP 134/77; PULSE 93; RESP 15; TEMP 36.6; O2SAT 98
[2024-05-20] MEDS: Benztropine Mesylate 1 MG TABLET PO (21:00)
[2024-05-20] MEDS: traZODone HCL 50 MG TABLET PO ×2 (21:00→22:15)
[2024-05-20] MEDS: risperiDONE 3 MG TABLET PO (21:00)
[2024-05-20] MEDS: Divalproex Sodium ER 500 MG TAB.ER.24H 1000 MG PO (21:00)
[2024-05-21 08:00] VITALS: BP 107/68; PULSE 78; RESP 16; TEMP 36.4; O2SAT 98
[2024-05-21] MEDS: risperiDONE 3 MG TABLET PO (08:25)
[2024-05-21] MEDS: Divalproex Sodium ER 500 MG TAB.ER.24H 1000 MG PO (08:25)
[2024-05-21] MEDS: Benztropine Mesylate 1 MG TABLET PO (08:25)
[2024-05-21] MEDS: Buprenorphine/Naloxone 4/1 mg FILM 1 FILM SUBLINGUAL (08:25)
--- NOTE | 2024-05-22 08:05 | P.DS_ITS ---
DS: Providers Provider Date of Service: 05/21/24 Date of admission: 05/07/24 12:22 Date of discharge: 05/21/24 Primary care physician: Unknown Physician Admitting clinician: Veronica Beltran Attending physician on admission: Az Duran Consults: 05/09/24 11:07 Addiction Medicine Routine Consulting Provider: Addiction Covering Reason for consultation: Suboxone pt, would like to restart Has provider been notified: No 05/17/24 17:43 Addiction Medicine Routine Consulting Provider: Addiction Covering Reason for consultation: pt asking to increase suboxone, taking 24 mg/day at home Has provider been notified: No Attending physician on discharge: Az Duran Discharging clinician: Veronica Beltran DS: Diagnosis Discharge Diagnosis (1) Opioid use disorder: Status: Acute (2) Unspecified psychosis: Status: Acute (3) Polysubstance use disorder: Status: Acute DS: Medications Discharge Medications Home Medications: Previous Rx's ?Medication ?Instructions ?Recorded buprenorphine 4 mg-naloxone 1 mg 1 film sublingual BID@0900,1700 #5 05/20/24 sublingual film (Suboxone) ea divalproex 500 mg tablet,extended 1,000 mg (2 x 500 mg) PO BID #60 05/20/24 release 24 hr tabs risperidone 3 mg tablet 3 mg PO BID #30 tabs 05/20/24 Mental Status Exam Mental Status Exam Patient Appearance: Appropriate Patient Orientation: Person, Place, Time and Situation Level of Consciousness: Alert Patient Behavior: Guarded, Avoidant, Distractible and Poor Eye Contact Mood Description: Labile Affect Description: Labile Patient Cognition Impaired: No Ability to Follow Directions: Fair Speech Pattern: Spontaneous Speech Memory Description: Intact Hallucinations: Auditory Delusions: Present Perceptual Disturbances: Derealization Thought Content: positive for Circumstantial Depressive Symptoms: Increased Irritability (at times) Judgement: Fair DS: Summary Hospital Course Hospital Course: Admission to adult psychiatry for exacerbation of psychosis, polysubstance use disorder, opiate use disorder, currently on Suboxone. Prior to admission pt was aggressive at home, threatening to family, broke a computer, pushed his mother and stopped Suboxone. Pt was minimally compliant with treatment. He demonstrated symptoms of psychosis without violence however expressed anger to mother when she came in for meetings. Mother was specific about medications, not wanting any court involvement with pt and minimal dosing. Pt slowly regrouped on small doses, refused milieu and refused all out patient referrals. He was discharged to home and welcomed back should he make a change about wanting further treatment. Status at Discharge Functional status at discharge: independent ambulation Overall status at discharge: patient is progressing back to baseline Time Spent with Patient Time attestation: Total time managing care of this patient today ____ minutes. Time spent: Less than 30 minutes Discharge Plan Discharge Anticipated Discharge Date/Time: 05/21/24 12:00 Patient Disposition: Home, Self-Care Discharge Diagnosis: Psychosis Polysubstance Use Disorder Opiate Use Disorder Referrals: Physician,Unknown J [Primary Care Provider] - 1 Week Discharge Medications: New risperidone 3 mg Tablet 3 mg PO BID Qty: 30 1RF divalproex 500 mg Tablet Extended Release 24 Hr 1,000 mg PO BID Qty: 60 1RF buprenorphine-naloxone [Suboxone] 4-1 mg Film 1 film sublingual BID@0900,1700 Qty: 5 0RF Discharge Orders: Discharge Order (Routine); Ordered 05/21/24 Ordered By: Veronica Beltran Diet: Advance to usual diet Activity on Discharge: As tolerated Stand Alone Forms: Patient Portal Discharge page, Community Support Print Language: Tristanian Care Plan Goals: Mood and Behavioral Stabilization Abstinence from Substances Health Concerns: Mood and Behavioral Stabilization Abstinence from Substances Plan of Treatment: [facility] has refused out patient appointments for follow up Medications have been sent including a 2.5 day supply of Suboxone and Valproate, Risperdal for 15 days with a refill. Call and or return as needed with questions or if you change your mind regarding treatment. We encourage you to reconsider treatment options Assessment: Denies SI/HI/AH/VH. Discharge due to refusal of treatment Discharge Date/Time: 05/21/24 11:57
== END 2024-05-21 11:57 | disposition home or self-care (01) | DRG 751 ==
LOC: HO.ED 16:48 → HO.PM5 05-07 12:44
PROVIDERS: Admitting Provider Clinical Nurse Specialist Psychiatric/Mental Health, Adult; Emergency Provider Student in an Organized Health Care Education/Training Program; Visit Provider Clinical Nurse Specialist Psychiatric/Mental Health, Adult
DX: F29 Unspecified psychosis not due to a substance or known physiological condition (principal); F19.950 Other psychoactive substance use, unspecified with psychoactive substance-induced psychotic disorder with delusions; F11.20 Opioid dependence, uncomplicated; F17.210 Nicotine dependence, cigarettes, uncomplicated; Z71.6 Tobacco abuse counseling; Z79.899 Other long term (current) drug therapy
CPT/HCPCS: 36415; 80053; 80061; 80307; 81003; 82607; 82746; 83036; 83735; 84439; 84443; 85025; 93005; 99285; S9485

== ENCOUNTER 2024-05-07 12:22 | Outpatient (BNV) | payer MEDICAID, SELFPAY | END 2024-05-07 12:44 | PROVIDERS: Admitting Provider Clinical Nurse Specialist Psychiatric/Mental Health, Adult; Emergency Provider Student in an Organized Health Care Education/Training Program; Visit Provider Internal Medicine Cardiovascular Disease | DX: R94.31 Abnormal electrocardiogram [ECG] [EKG] (principal) | CPT/HCPCS: 93010 ==

== ENCOUNTER → 2024-05-07 12:22 | Outpatient (BNV) | payer OTHER, SELFPAY | PROVIDERS: Admitting Provider Clinical Nurse Specialist Psychiatric/Mental Health, Adult; Emergency Provider Student in an Organized Health Care Education/Training Program; Visit Provider Clinical Nurse Specialist Psychiatric/Mental Health, Adult | DX: F29 Unspecified psychosis not due to a substance or known physiological condition (principal); F11.90 Opioid use, unspecified, uncomplicated; F19.90 Other psychoactive substance use, unspecified, uncomplicated | CPT/HCPCS: 99231; 99232 ==

== ENCOUNTER → 2024-05-07 12:22 | Outpatient (BNV) | payer MEDICAID, SELFPAY | PROVIDERS: Admitting Provider Clinical Nurse Specialist Psychiatric/Mental Health, Adult; Emergency Provider Student in an Organized Health Care Education/Training Program; Visit Provider Nurse Practitioner Psychiatric/Mental Health | DX: F11.90 Opioid use, unspecified, uncomplicated (principal) | CPT/HCPCS: 99231; 99499 ==

== ENCOUNTER 2024-12-27 14:21 | Outpatient (REF) | payer OTHER, SELFPAY ==
[2024-12-27 17:20] LABS: Alanine Aminotransferase 15 U/L (0-40); Albumin Level 4.3 g/dL (3.5-5.0); Alkaline Phosphatase 67 U/L (39-117); Aspartate Amino Transferase 19 U/L (5-37); Bilirubin Direct 0.1 mg/dL (0.0-0.5); Bilirubin Total 0.3 mg/dL (0.0-1.0); Total Protein 7.5 g/dL (6.5-8.0)
[2024-12-28 04:17] LABS: HIV AB/AG Nonreactive (Nonreactive); HIV Num 1 0.07 S/CO (0.00-0.99); ~HepC Num1 0.09 S/CO (0.00-0.79); ~Hepatitis C Antibody Nonreactive (Nonreactive)
[2024-12-28 04:18] LABS: Syphilis Screen Nonreactive (Nonreactive)
[2024-12-30 17:14] LABS: TS Negative Control Passed; TS Panel A 0; TS Panel B 0; TS Positive Control Passed; TSpotTB Negative (Negative)
== END 2024-12-27 14:22 | disposition home or self-care (01) ==
LOC: HO.HHCL 14:21
PROVIDERS: Visit Provider Emergency Medicine
DX: F11.20 Opioid dependence, uncomplicated (principal)
CPT/HCPCS: 36415; 80076; 86481; 86780; 86803; 87389